=== PATIENT | female | born 1970 | race Caucasian/White ===

== ENCOUNTER → 2017-01-24 | Outpatient (CLI) | payer BC ==
[~2017-01-24] MED LIST: APRISO PO; CLTP PO; DFL50 NAE; MULT-506 PO
--- NOTE | 2017-01-24 11:26 | DIAGNOSTIC IMAGING REPORT ---
THYROID ULTRASONOGRAPHY CLINICAL HISTORY: Thyromegaly COMPARISON STUDY: No previous studies for comparison. FINDINGS: The right lobe of the thyroid measures 50 x 18 x 14 mm. There is a 2 mm hypoechoic nodule within the upper pole. The left lobe measures 51 x 15 x 11 mm. No left lobe nodules are visualized. Thyroid echotexture is unremarkable. The isthmus measures 3 mm. IMPRESSION: No suspicious thyroid masses identified. Electronically signed by: Ari Reno M.D. 01/24/2017 11:25 AM Dictated Date/Time: 01/24/2017 11:18 AM
[2017-01-24 13:37] LABS: BASO % 0.4 %; BASO ABS # 0.04 K/uL (0-0.2); COMPLETE YES; EOS % 1.1 %; HEMATOCRIT 46.1 % (37-47); IG% 0.3 %; LYMPH % 29.5 %; LYMPH ABS # 3.14 K/uL (1.2-3.4); MEAN CELL VOLUME 85.4 fL (80-100); MEAN CORPUSCULAR HGB CONC 32.8 g/dl (32-36); MEAN PLATELET VOLUME 10.1 fL (7.4-10.4); MONO % 5.8 %; NEUT % 62.9 %; PLATELET COUNT 305 K/uL (130-400); WHITE BLOOD COUNT 10.63 K/uL (4.8-10.8)
[2017-01-24 14:03] LABS: ALT/SGPT 22 U/L (12-78); AST/SGOT 12 U/L (15-37); BLOOD UREA NITROGEN 13 mg/dl (7-18); BUN/CREATININE RATIO 13.9 (10-20); CALCIUM 8.7 mg/dl (8.5-10.1); CARBON DIOXIDE 27 mmol/L (21-32); CHLORIDE 107 mmol/L (98-107); CREATININE 0.93 mg/dl (0.60-1.20); GLUCOSE 82 mg/dl (70-99); SODIUM 142 mmol/L (136-145)
[2017-01-24 14:15] LABS: ALB/GLOB RATIO 1.1 (0.9-2); ALKALINE PHOSPHATASE 95 U/L (45-117); CHOLESTEROL 164 mg/dl (0-200); CHOLESTEROL/HDL RATIO 2.7; HDL CHOLESTEROL 60 mg/dl; LDL CHOLESTEROL CALCULATED 84 mg/dl; THYROID STIMULATING HORMONE 0.826 uIu/ml (0.300-4.500); TRIGLYCERIDES 98 mg/dl (0-150); VERY LOW DENSITY LIPOPROT CALC 20 mg/dl
== END | disposition home or self-care (01) ==
LOC: C.ULTRBC 10:48
PROVIDERS: ATTEND Internal Medicine Geriatric Medicine
DX: Z00.00 Encounter for general adult medical examination without abnormal findings (principal); E04.9 Nontoxic goiter, unspecified; R79.9 Abnormal finding of blood chemistry, unspecified

== ENCOUNTER → 2017-04-18 | Outpatient (CLI) | payer BC ==
--- NOTE | 2017-04-18 16:30 | MAMMOGRAPHY REPORT ---
BILATERAL DIGITAL SCREENING MAMMOGRAM TOMOSYNTHESIS WITH CAD: 04/18/2017 TECHNIQUE: Breast tomosynthesis in addition to standard 2D mammography was performed. Current study was also evaluated with a Computer Aided Detection (CAD) system. COMPARISON: Comparison is made to exams dated: 04/12/2016 mammogram, 04/27/2015 ultrasound, 04/27/2015 mammogram, 04/07/2015 mammogram, 04/06/2014 mammogram, and 04/01/2014 mammogram - [facility]. BREAST COMPOSITION: The tissue of both breasts is heterogeneously dense, which may obscure small ma sses. FINDINGS: No suspicious masses, calcifications, or areas of architectural distortion are noted in e ither breast. There has been no significant interval change compared to prior exams. IMPRESSION: ACR BI-RADS CATEGORY 1: NEGATIVE There is no mammographic evidence of malignancy. A 1 year screening mammogram is recommended. The p atient will receive written notification of the results. Approximately 10% of breast cancers are not detected with mammography. A negative mammographic repor t should not delay biopsy if a clinically suggestive mass is present. Pastora Myers M.D. ah/:04/18/2017 15:04:59 Director Of Revenue Cycle Management: Alannah ACUÑA(Rebekah)(M), [facility] letter sent: Normal 1/2 BI-RADS Code: ACR BI-RADS Category 1: Negative
== END | disposition home or self-care (01) ==
LOC: C.MAMM 10:38
PROVIDERS: ATTEND Internal Medicine
DX: Z12.31 Encounter for screening mammogram for malignant neoplasm of breast (principal)

== ENCOUNTER → 2017-11-05 | Outpatient (CLI) | payer BC | END | disposition home or self-care (01) | LOC: C.PAPS 14:05 | PROVIDERS: ATTEND Obstetrics & Gynecology | DX: Z01.419 Encounter for gynecological examination (general) (routine) without abnormal findings (principal) ==

== ENCOUNTER → 2018-01-27 | Outpatient (CLI) | payer OTHER ==
--- NOTE | 2018-01-27 15:15 | MAMMOGRAPHY REPORT ---
UNILATERAL LEFT DIGITAL DIAGNOSTIC MAMMOGRAM TOMOSYNTHESIS WITH CAD AND TARGETED LEFT ULTRASOUND: 01/02 CLINICAL HISTORY: 47-year-old woman presents after she noticed soreness in her left lateral breast a few weeks ago. That prompted self breast exam and the patient felt a lump in the superior left breas t, which has since resolved. Family history of breast cancer = mother. TECHNIQUE: Left CC and MLO 2-D and tomosynthesis images; spot compression tomosynthesis left MLO view were obtained. Current study was also evaluated with a Computer Aided Detection (CAD) system. COMPARISON: Comparison is made to exams dated: 04/18/2017 mammogram, 04/12/2016 mammogram, 04/27/2015 u ltrasound, 04/27/2015 mammogram, 04/07/2015 mammogram, and 04/06/2014 mammogram - [facility]. BREAST COMPOSITION: The tissue of the left breast is heterogeneously dense, which may obscure small masses. FINDINGS: A triangular palpable marker was placed on the skin of the 12:00 to 1:00 left breast, denot ing the previous area of palpable lump pointed out by the patient. No obvious new mass, asymmetry, d istortion or calcifications are seen in the area of palpable concern. There are increasingly promine nt circumscribed mass versus masses in the 3:00 middle one third of the left breast for which further evaluation with ultrasound was performed. Mammographically, these masses measure 3.2 x 2.4 cm in co nglomerate. There is also an asymmetry in the posterior left breast along the posterior nipple line on the MLO view (MLO tomosynthesis slice 19/79), for which an additional spot compression tomosynthes is view was obtained. The additional spot compression tomosynthesis view of the left breast demonstrates effacement of the asymmetry seen on the tomosynthesis images along the posterior nipple line. There is no persistent a maggie of architectural distortion or suspicious mass. Further evaluation with ultrasound was performed of the left breast. Targeted ultrasound was performed in the left breast with particular attention to the superior rest, area of palpable concern in the 12:00 axis, and circumscribed masses in the 3:00 axis. In the 12:00 breast, 6 cm from the nipple in the area of decreasing lump pointed out by the patient, sonographical ly normal tissue is seen. There are abutting anechoic benign simple cysts in the 3:00 left breast, 2 cm from the nipple, measuring 3.9 x 1.4 x 2.4 cm in conglomerate, corresponding to the circumscribed mammographic masses. Another oval parallel circumscribed hypoechoic cystic appearing mass with evid ence of posterior acoustic enhancement is identified in the 1:00 left breast, 6 cm from the nipple, m easuring 8.5 x 5.2 x 9.8 mm. No other suspicious solid mass is seen throughout the superior left shannon ast on ultrasound. No sonographic correlate to the effacing asymmetry in the posterior breast along the posterior nipple line on the MLO view. IMPRESSION: ACR BI-RADS CATEGORY 2: BENIGN, TARGETED ULTRASOUND ACR BI-RADS CATEGORY 2: BENIGN 1. There is no suspicious mammographic or sonographic abnormality to explain the decreasing palpable lump in the 12:00 left breast. Therefore, clinical follow-up is recommended as biopsy of a clinical ly suspicious mass should not be precluded by negative imaging. 2. There are 2 large anechoic benign cysts measuring 3.9 x 2.4 cm in the 3:00 left breast, which may be contributing to the breast mastalgia reported by the patient. 3. An asymmetry in the posterior left breast along the posterior nipple line on the MLO view effaces with additional spot compression tomosynthesis imaging and no suspicious sonographic correlate was s een. This most likely represented normal overlapping tissue. Recommend continued clinical follow-up otherwise return to annual screening mammography schedule, due in March 2018. These results and recommendations were discussed with the patient at the time of the exam. Approximately 10% of breast cancers are not detected with mammography. A negative mammographic report should not delay biopsy if a clinically suggestive mass is present. Hali Grimm M.D. ay/:01/27/2018 10:46:18 Cloud Automation Tester: Alannah Johnson, [facility] letter sent: Normal 1/2 BI-RADS Code: ACR BI-RADS Category 2: Benign Ultrasound BI-RADS: ACR BI-RADS Category 2: Benign
== END | disposition home or self-care (01) ==
LOC: C.MAMM 09:20
PROVIDERS: ATTEND Obstetrics & Gynecology
DX: N63.20 Unspecified lump in the left breast, unspecified quadrant (principal); N64.4 Mastodynia; Z80.3 Family history of malignant neoplasm of breast

== ENCOUNTER 2022-01-01 18:19 | Inpatient (IN) ==
[2022-01-01] MEDS ORDERED: ONDANSETRON INJ 2 MG/ML 2 ML VIAL IV STA (18:58)
[2022-01-01] MEDS ORDERED: MoRPHine SULFATE 2 MG/ML CARP IV STA (18:58)
[2022-01-01] MEDS ORDERED: SODIUM CHLORIDE 0.9% 1000ML 1,000 ML IV ONE (18:58)
--- NOTE | 2022-01-01 19:04 | Emergency Department Note ---
History of Present Illness General Chief complaint: Abdominal Pain Stated complaint: RT ABDOM PAIN, REF FOR GALLBLADDER Time Seen by Provider: 01/01/22 18:38 Source: patient and family (Spouse who is at the bedside) Mode of arrival: ambulatory Limitations: no limitations History of Present Illness Maximum Pain Intensity: 9 This patient is a 51-year-old female who comes in with right upper quadrant abdominal pain. She had ultrasound done at [facility] which showed gallstones with suspicion for cholecystitis with surgical consultation recommended. She was sent here by her primary doctor. This all started Friday night she was seen here when she had chest and back pain a significant work-up was done which was unremarkable and she was sent home. She said she felt good until Friday when she ate some sausage and hamburger and the pain got worse now it was in the right upper quadrant not in her chest. She saw Dr. Brunson's office and Dalia Cristina today who ordered a gallbladder ultrasound. She had a low-grade temperature of 99 for the last 2 days she has had nausea she vomited yesterday and also on Friday but none today. She has had decreased p.o. intake she is been taking sips. She had normal bowel movements. No chest pain. Occasionally back pain still she has been Covid vaccinated x2 as well as boosted. No blood or melena stool. She is perimenopausal and currently has her menstrual period Home Medications Medication Instructions Recorded Confirmed Type calcium carbonate 600 mg-vitamin 1 tab PO DAILY tab 08/09/19 01/01/22 History D3 10 mcg (400 unit) chewable tablet (Calcium 600 with Vitamin D3) mesalamine 0.375 gram 1.5 gm PO QAM 08/09/19 01/01/22 History capsule,extended release 24 hr (Apriso) pediatric multivitamin 1 tab PO DAILY 08/09/19 01/01/22 History (Flintstones Multivitamin) escitalopram oxalate 20 mg tablet 20 mg PO DAILY #30 tab 10/17/21 01/01/22 Rx nystatin-triamcinolone 100,000 1 applic TOPICAL TID PRN 12/28/21 01/01/22 History unit/g-0.1 % topical cream Allergies Allergy/AdvReac Type Severity Reaction Status Date / Time sulfamethoxazole Allergy Severe Hives Verified 01/01/22 18:45 [From Bactrim] trimethoprim [From Bactrim] Allergy Severe Hives Verified 01/01/22 18:45 Penicillins Allergy Unknown Unknown Verified 01/01/22 18:45 Past Med/Surg History Medical History (Updated 01/01/22 @ 22:13 by Jean Shields MD) Hypertension, essential Migraine headache Ulcerative colitis Surgical History H/O colonoscopy History of oral surgery Family History Father Hx of CABG Mother Breast cancer Osteoporosis Grandmother Alzheimer disease Other Myocardial infarction Prostate cancer Denies family history of Ovarian cancer Diabetes Lung cancer Colorectal cancer Hypertension Stroke Social History Smoking Status: Never smoker Hx Alcohol Use: Yes Alcohol type: beer and wine Hx Substance Use: No Preferred Language: Kinyarwanda marital status: Current Living Situation: Spouse current occupational status: employed Feels Safe at Home: Yes Dental Care, Regularly: Yes Physical Activity Frequency: 3-4 Times per Week Seatbelt Use: always Sunscreen Use: Yes Review of Systems A total of 10 systems reviewed and were otherwise negative Physical Exam Vital Signs Vital Signs - 24 hr 01/01/22 18:20 Temperature 36.7 C Temperature Source Temporal Artery Scan Pulse Rate 117 H Pulse Rhythm Regular Respiratory Rate 20 Respiratory Effort / Characteristics Non-Labored Spontaneous Respiratory Depth Normal Respiratory Pattern Regular Blood Pressure 188/97 H Blood Pressure Mean 127 Pulse Oximetry 97 Oxygen Delivery Method Room Air Sepsis Recent Fever Within 48 Hours No Sepsis New/Unexplained Change in Mental Status No Sepsis Action Taken by Nursing No Action Required General: Well developed well nourished middle-aged female who is complaint of pain but in no acute distress, breathing comfortably on room air. Normal speech HEENT: Normal cephalic atraumatic. Pupils are equal round and reactive to light . Extraocular movements are intact. Oropharynx is pink with moist mucous membranes. No swelling of the mouth lips or tongue. Neck: Supple with a midline trachea. No meningeal signs or stiffness, no JVD or bruits. No Stridor. Chest: Clear to auscultation bilaterally. No wheezes or rhonchi. No increased work of breathing. Heart: Regular rate and rhythm without murmurs or gallops. Abdomen: Soft, significantly tender with positive Nunez sign in the right upper, nondistended without rebound guarding or rigidity. Extremities: No cyanosis clubbing or edema. No calf tenderness or assymetry Spine/Back. Non tender to palpation. No CVA tenderness Skin: Good turgor without rashes. Neurologic exam: Cranial nerves two through 12 are intact. Motor and sensation are intact and symmetrical throughout. Course Administered Medications Hydralazine HCl (Hydralazine Hcl 20 Mg/Ml Vial) 5 mg IV Q6H PRN PRN Reason: SBP >180 Stop: 01/31/22 21:44 Last Admin: 01/01/22 21:56 Dose: 5 mg Documented by: [id number] Lactated Ringer's (Lr) 1,000 mls @ 75 mls/hr IV .[id number] Stop: 01/31/22 20:14 Last Admin: 01/01/22 22:00 Dose: 75 mls/hr Documented by: [id number] Discontinued Medications Sodium Chloride (Nss 1000ml) 1,000 mls @ 999 mls/hr IV .[id number] ONE Stop: 01/01/22 19:58 Last Infusion: 01/01/22 21:00 Dose: 0 mls/hr Documented by: [id number] Admin: 01/01/22 19:13 Dose: 999 mls/hr Documented by: [id number] Cefepime HCl 2,000 mg/ Syringe 20 mls @ 5 mls/min IV NOW STA; Protocol Stop: 01/01/22 19:17 Last Admin: 01/01/22 19:56 Dose: 5 mls/min Documented by: [id number] Morphine Sulfate (Morphine Sulfate 2 Mg/Ml Carp) 2 mg IV NOW STA Stop: 01/01/22 18:59 Last Admin: 01/01/22 19:12 Dose: 2 mg Documented by: [id number] Ondansetron HCl (Ondansetron Inj 2 Mg/Ml 2 Ml Vial) 4 mg IV NOW STA Stop: 01/01/22 18:59 Last Admin: 01/01/22 19:12 Dose: 4 mg Documented by: [id number] Medical Decision Making Differential Diagnosis Gallbladder disease, gallstones, cholelithiasis, Covid, electrolyte or metabolic abnormality, pancreatitis, cardiac disease, Medical Records Attestation: I reviewed the patient's medical records. Home Medications Current Medication List: was personally reviewed by me Laboratory Data Attestation: I reviewed the patient's lab results. Result diagrams: 01/01/22 19:18 01/01/22 19:18 Lab Results 01/01/22 01/01/22 01/01/22 Range/Units 19:18 19:18 19:58 WBC 20.84 H (4.8-10.8) K/uL RBC 5.19 (4.2-5.4) M/uL Hgb 15.1 (12.0-16.0) g/dL Hct 45.0 (37-47) % MCV 86.7 (80-100) fL MCH 29.1 (25-34) pg MCHC 33.6 (32-36) g/dL RDW Std Deviation 42.5 (36.4-46.3) fL RDW Coeff of Abbie 13.2 (11.5-14.5) % Plt Count 298 (130-400) K/uL MPV 10.3 (7.4-10.4) fL Immature Gran % (Auto) 0.1 % Neut % (Auto) 85.9 % Lymph % (Auto) 5.4 % [place] % (Auto) 8.4 % Eos % (Auto) 0.1 % Baso % (Auto) 0.1 % Neut # (Auto) 17.88 H (1.4-6.5) K/uL Lymph # (Auto) 1.13 L (1.2-3.4) K/uL [place] # (Auto) 1.76 H (0.11-0.59) K/uL Eos # (Auto) 0.02 (0-0.5) K/uL Baso # (Auto) 0.02 (0-0.2) K/uL Immature Gran # (Auto) 0.03 H (0.00-0.02) K/uL Sodium 133 L (136-145) mmol/L Potassium 3.7 (3.5-5.1) mmol/L Chloride 99 (98-107) mmol/L Carbon Dioxide 22 (21-32) mmol/L Anion Gap 12 H (3-11) BUN 8 (6-23) mg/dl Creatinine 0.72 (0.6-1.2) mg/dl Est Cr Clr Drug Dosing 87.5 ml/min Est GFR ( Amer) 112.4 ml/min Est GFR (Non-Af Amer) 97.0 ml/min BUN/Creatinine Ratio 11.1 (10-20) Glucose 117 H (70-99(Fasting)) mg/dl Calcium 9.2 (8.5-10.1) mg/dl Total Bilirubin 1.1 H (0.2-1.0) mg/dl AST 13 (13-39) U/L ALT 14 (7-52) U/L Alkaline Phosphatase 100 (34-104) U/L Total Protein 7.6 (6.0-8.3) gm/dl Albumin 4.1 (3.4-5.0) gm/dl Globulin 3.5 (2.5-4.0) gm/dl Albumin/Globulin Ratio 1.2 (0.9-2) Lipase 6 L (11-82) U/L SARS-CoV-2, RNA, NAAT NEGATIVE (NEGATIVE) Imaging Data My Impression: 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 She has an ultrasound which is suggestive for cholecystitis. She was kept n.p.o. IV access was to have she hydrated with IV normal saline. she was given morphine 2 mg IV and Zofran 4 mg IV. I did consult surgery to see her in the emergency department. I did talk to Marvin Harris from surgery he is going to come see the patient in the emergency department. He did agree with giving the patient IV cefepime which I ordered. Her white count is elevated 20,000, she has no significant electrolyte or metabolic abnormalities. Surgery is going to admit her for IV antibiotics and surgery. Impression & Plan Acute cholecystitis, Abdominal pain, Lab test negative for COVID-19 virus, Not currently Discharge Plan Visit Data Chief Complaint: Abdominal Pain Stated Complaint: RT ABDOM PAIN, REF FOR GALLBLADDER ED Provider: Jean Shields Discharge Problem: Acute cholecystitis, Abdominal pain, Lab test negative for COVID-19 virus, Not currently Patient Disposition: Admitted As Inpatient Discharge Instructions Interventions: ED Discharge Assessment Last Done: 01/01/22 21:15 Discharge Problem: Abdominal pain Qualifiers: Abdominal location: right upper quadrant Qualified Code(s): R10.11 - Right upper quadrant pain
[2022-01-01] MEDS ORDERED: CEFEPIME 2,000 MG in SYRINGE 0 ML IV STA (19:14)
[2022-01-01 19:56] LABS: Basophils # (auto) 0.02 K/uL (0-0.2); Basophils % (auto) 0.1 %; Eosinophils # (auto) 0.02 K/uL (0-0.5); Eosinophils % (auto) 0.1 %; Hemoglobin 15.1 g/dL (12.0-16.0); Immature Granulocytes # (auto) 0.03 K/uL (0.00-0.02); Immature Granulocytes % (auto) 0.1 %; Lymphocytes # (auto) 1.13 K/uL (1.2-3.4); Lymphocytes % (auto) 5.4 %; Mean Corpuscular Hemoglobin 29.1 pg (25-34); Mean Corpuscular Hgb Conc 33.6 g/dL (32-36); Mean Corpuscular Volume 86.7 fL (80-100); Mean Platelet Volume 10.3 fL (7.4-10.4); Monocytes # (auto) 1.76 K/uL (0.11-0.59); Monocytes % (auto) 8.4 %; Neutrophils # (auto) 17.88 K/uL (1.4-6.5); Neutrophils % (auto) 85.9 %; Platelet Count 298 K/uL (130-400); RDW Coefficient of Variation 13.2 % (11.5-14.5); RDW Standard Deviation 42.5 fL (36.4-46.3); Red Blood Count 5.19 M/uL (4.2-5.4); White Blood Count 20.84 K/uL (4.8-10.8)
--- NOTE | 2022-01-01 20:00 | History & Physical Report ---
Date of Service January 01, 2022 Assessment & Plan (1) Acute cholecystitis: Plan: Due to the patient's clinical presentation and imaging she will be admitted to the hospital proceeding as follows: Analgesics will be provided Antiemetics will be provided Antibiotics will be administered. The treating emergency room physician has initiated cefepime (the patient does report a penicillin allergy). We will continue antibiotics. We will provide gentle hydration with IV fluids We will have the patient sips of clear liquids for the present time but make her n.p.o. after midnight We will await Covid testing We have tentatively scheduled the patient for laparoscopic, possible open cholecystectomy by Dr. Quentin Estrada tomorrow. He will further discuss the surgical procedure with the patient at the time of his visit with her tomorrow. It should be noted that we are presently waiting on the patient's chemistry profile and LFTs. If there are any abnormalities on her LFTs suggestive of choledocholithiasis appropriate measures such as a MRCP or GI consultation will be considered. Additional recommendations be forthcoming based on her clinical course as unfolds as well as findings at time of surgery. We will use SCDs for DVT prevention, no chemical means due to planned surgery Patient be a level 1 full code History of Present Illness Chief Complaint: Abdominal pain Primary Care Provider: Brayan Kowalski MD This is a 51-year-old female who presented to [facility] on 12/20/2021 secondary to chest tightness as well as right upper quadrant abdominal pain. Patient said prior to presenting to the emergency department she had a fatty meal. She developed some nausea vomiting and a low-grade temperature of approximate 99. Because of her chest tightness she presented to the emergency department. In the emergency department that day she had labs and imaging which independent reviewed. CT scan of the chest showed no evidence of pneumonia or PE. An EKG showed normal sinus rhythm without change indicative of ischemia and cardiac enzymes are negative. There is no elevation of her LFTs or lipase. Patient was however noted to have an elevated white blood cell count of 14.6 at that time. She was felt stable for discharge home was instructed to follow-up with her primary care team. Patient is was seen by her primary care team today and the patient was complaining of some right upper quadrant abdominal pain so a gallbladder ultrasound was ordered. This study showed a distended gallbladder with gallstones and sludge. There is some nonmobile gallstone seen in the region of the gallbladder neck. There is mild thickening of the gallbladder wall up to approximately 4 mm. There is no pericholecystic fluid noted. Because the results of the ultrasound she was advised by her primary care team to present to the emergency department where I was asked to see her. I did question patient on her abdominal pain and she said thinking back over the past several months she would develop some postprandial pain in the right upper quadrant but it was not as severe as what she is presently experiencing. She does note with her current pain it does radiate to her upper back/right shoulder area. She notes pain is clearly worse after eating and is improved with morphine that has been administered in the emergency department Patient notes that she had some sips of water today but has not had any thing else in the form of oral intake. She notes she has never had any prior abdominal surgeries. She does note that she has a history of ulcerative colitis. She said this was diagnosed in 2006 when she was having mucousy bowel movements. She said the diagnosis was made by sigmoidoscopy and she is subsequent been placed on mesalamine. She says she is compliant with her medicines and has not had an ulcerative colitis flare since her initial diagnosis in 2006. She reports her most recent colonoscopy was within the past year and there is no significant pathology to the best of her knowledge. Since arrival to the emergency department she has been noted to be hem odynamically stable and afebrile. She did have repeat labs were CBC showed her white blood cell count was 20.8. Her hemoglobin, hematocrit, and platelet count were within normal range. Chemistry profile and LFTs along with a test are pending. A Covid test has also been ordered and is pending. At the time of my interview patient had received some morphine and her pain was well controlled and she was no distress. Allergies Allergy/AdvReac Type Severity Reaction Status Date / Time sulfamethoxazole Allergy Severe Hives Verified 01/01/22 18:45 [From Bactrim] trimethoprim [From Bactrim] Allergy Severe Hives Verified 01/01/22 18:45 Penicillins Allergy Unknown Unknown Verified 01/01/22 18:45 Home Medications Medication Instructions Recorded Confirmed Type calcium carbonate 600 mg-vitamin 1 tab PO DAILY tab 08/09/19 01/01/22 History D3 10 mcg (400 unit) chewable tablet (Calcium 600 with Vitamin D3) mesalamine 0.375 gram 1.5 gm PO QAM 08/09/19 01/01/22 History capsule,extended release 24 hr (Apriso) pediatric multivitamin 1 tab PO DAILY 08/09/19 01/01/22 History (Flintstones Multivitamin) escitalopram oxalate 20 mg tablet 20 mg PO DAILY #30 tab 10/17/21 01/01/22 Rx nystatin-triamcinolone 100,000 1 applic TOPICAL TID PRN 12/28/21 01/01/22 History unit/g-0.1 % topical cream oxycodone 5 mg tablet 5 - 10 mg PO .[id number] PRN #15 tab 01/02/22 Rx Past Med/Surg History Medical History Hypertension, essential Migraine headache Ulcerative colitis Surgical History H/O colonoscopy History of oral surgery Family History Father Hx of CABG Mother Breast cancer Osteoporosis Grandmother Alzheimer disease Other Myocardial infarction Prostate cancer Denies family history of Ovarian cancer Diabetes Lung cancer Colorectal cancer Hypertension Stroke Social History Smoking Status: Never smoker Second Hand Exposure: No; Do You Dip or Chew Tobacco: No; Tobacco Cessation Education Requested by Patient: No Hx Alcohol Use: Yes Alcohol type: beer and wine Hx Substance Use: No Preferred Language: Danish Communication Ability: Effective Multicultural Services Librarian Required: No Beliefs That Will Affect Care: None marital status: Current Living Situation: Spouse and Family current occupational status: employed Other Information That Helps Us Care for You: No Feels Safe at Home: Yes Safety Concerns: Feels Safe At This Time Dental Care, Regularly: Yes Physical Activity Frequency: 3-4 Times per Week Seatbelt Use: always Sunscreen Use: Yes Assistive Devices: None Review of Systems Constitutional: + fever (Low-grade); no chills Eyes: no diplopia Ear, Nose, Mouth, Throat: no ear pain, no hearing loss and no sore throat Respiratory: no cough and no dyspnea Cardiovascular: as per Subjective / HPI Gastrointestinal: as per Subjective / HPI, + abdominal pain, + nausea and + vomiting Genitourinary: no dysuria Musculoskeletal: + back pain (Radiating from her right upper quadrant) Integumentary: no rash Neurologic: no localized weakness Physical Exam Constitutional: WD/WN, vitals as above Eyes: + anicteric sclerae ENMT: Ears: no hearing impairment and no external ear abnormality Mouth: no oropharynx abnormality Neck: trachea midline Respiratory: normal respiratory effort, lungs clear to auscultation Cardiovascular: Rate/Rhythm: regular rate and regular rhythm Gastrointestinal (Abdomen): Patient's abdomen is soft and nondistended. Bowel sounds are present. There is no rebound tenderness or guarding. The patient did have significant pain with palpation greatest in the right upper quadrant with positive Nunez sign. To a lesser extent she did have some pain with palpation in the epigastric area. Musculoskeletal: No calf tenderness Skin: no rashes Neurologic: moves all extremities Psychiatric: A+Ox3, euthymic affect Results & Data Results & Data ([facility]) Vital Signs (Past 12 Hours) Vital Signs Temp Pulse Resp BP Pulse Ox 01/01/22 18:20 36.7 C 117 H 20 188/97 H 97 Supervising Physician Co-Signing Physician Notes I personally saw and evaluated the patient with Héctor Harris PA-C and agree with the assessment and plan. 51-year-old female with acute cholecystitis Admit to surgery Start IV antibiotics Keep n.p.o. Pain control as needed To OR tomorrow for laparoscopic cholecystectomy, possible open, possible intraoperative cholangiogram Consent obtained, risks discussed including bleeding, infection, bile leak, ductal injury PG Care Time/CCT Total # of Minutes Spent Total Time Spent with Patient: Total time spent is greater than 50% in coordination of care (as documented) at patient's floor/unit and/or counseling patient: Coding Level of Care Code 01553 Initial Inpt Care Lvl 3 Diagnoses Acute cholecystitis K81.0
[2022-01-01] MEDS ORDERED: ACETAMINOPHEN 1,000 MG/100 ML VIAL IV PRN (20:09)
[2022-01-01] MEDS ORDERED: MoRPHine SULFATE 4 MG/ML 1 ML CARP\\VIAL IV PRN (20:09)
[2022-01-01 20:26] LABS: Albumin Globulin Ratio 1.2 (0.9-2); Albumin Level 4.1 gm/dl (3.4-5.0); BUN Creatinine Ratio 11.1 (10-20); Bilirubin,Total 1.1 mg/dl (0.2-1.0); Calcium 9.2 mg/dl (8.5-10.1); Creatinine Clr Calc Pharmacy 87.5 ml/min; Est GFR (African American) 112.4 ml/min; Globulin 3.5 gm/dl (2.5-4.0); Potassium 3.7 mmol/L (3.5-5.1); Total Protein 7.6 gm/dl (6.0-8.3)
[2022-01-01 20:55] LABS: Appearance Urine Clear (Clear); Bacteria Urine Automated Negative (Negative); Bilirubin Urine Negative (Negative); Blood Urine 3+ (Negative); Color Urine Yellow; Epithelial Cell Urine Auto 20-30 /lpf (0-5); Glucose Urine UA Negative (Negative); Ketones Urine 3+ (Negative); Leukocyte Esterase Urine Negative (Negative); Nitrite Urine Negative (Negative); Protein Urine 1+ (Negative); Specific Gravity Urine 1.013 (1.000-1.030); Urobilinogen Urine Negative (Negative)
[2022-01-01] MEDS ORDERED: ONDANSETRON INJ 2 MG/ML 2 ML VIAL IV PRN (21:31)
[2022-01-01] MEDS ORDERED: CEFEPIME 2,000 MG in SYRINGE 0 ML IV SCH (21:31)
[2022-01-01] MEDS ORDERED: hydrALAZINE HCL 20 MG/ML VIAL IV PRN (21:45)
--- NOTE | 2022-01-01 21:50 | Communication Note ---
Date of Service: January 01, 2022 Notified by RN the patient being elevated BP readings. Upon arrival to the floor BP readings of 201/122 and 192/110 noted. Patient's pain control was r eported as a 3 so doubt this is contributing to the patient's elevated BP. Her records were reviewed and she has been followed by her PCP for this problem, however most recently lifestyle changes including weight loss have been recommended to the patient and she is currently not taking any medication. To the elevated BP readings will order as needed IV hydralazine to see if this helps BP readings. If she continues to have persistently elevated readings we will request a medical consult.
[2022-01-01] MEDS: LACTATED RINGER'S 1,000 ML IV SCH (22:00)
[2022-01-02] MEDS ORDERED: CEFEPIME 2,000 MG in SYRINGE 0 ML IV SCH (06:00)
--- NOTE | 2022-01-02 06:13 | Communication Note ---
Date of Service: January 02, 2022 Discussed with RN. As noted previously patient had markedly elevated blood pressure. She received 1 dose of IV hydralazine, 5 mg and her blood pressure improved to 159/89. We will continue to monitor.
--- NOTE | 2022-01-02 07:42 | Anesthesiology Consultation ---
Date of Service January 02, 2022 Assessment & Plan (1) Encounter for pre-operative examination: Chart Review Chart Review: entry manager initiated History Surgery Operation Date: 01/02/22 13:25 Proposed Procedures p Laparoscopic Cholecystectomy Possible Ellie - Quentin Estrada, Height/Weight Height: 5 ft 1.5 in Weight: 78.8 kg Allergies Allergy/AdvReac Type Severity Reaction Status Date / Time sulfamethoxazole Allergy Severe Hives Verified 01/01/22 18:45 [From Bactrim] trimethoprim [From Bactrim] Allergy Severe Hives Verified 01/01/22 18:45 Penicillins Allergy Unknown Unknown Verified 01/01/22 18:45 Medications Home Medications Medication Instructions Recorded Confirmed Last Taken calcium carbonate 600 mg-vitamin 1 tab PO DAILY tab 08/09/19 01/01/22 Unknown D3 10 mcg (400 unit) chewable tablet (Calcium 600 with Vitamin D3) mesalamine 0.375 gram 1.5 gm PO QAM 08/09/19 01/01/22 Unknown capsule,extended release 24 hr (Apriso) pediatric multivitamin 1 tab PO DAILY 08/09/19 01/01/22 Unknown (Flintstones Multivitamin) escitalopram oxalate 20 mg tablet 20 mg PO DAILY #30 tab 10/17/21 01/01/22 Unknown nystatin-triamcinolone 100,000 1 applic TOPICAL TID PRN 12/28/21 01/01/22 Unknown unit/g-0.1 % topical cream Active Medications Generic Name Dose Route Start Last Admin Trade Name Freq PRN Reason Stop Dose Admin Hydralazine HCl 5 mg 01/01/22 21:45 01/01/22 21:56 Hydralazine Hcl 20 Mg/Ml Vial IV 01/31/22 21:44 5 mg Q6H PRN Administration SBP >180 Lactated Ringer's 1,000 mls @ 75 mls/hr 01/01/22 20:15 01/01/22 22:00 Lr IV 01/31/22 20:14 75 mls/hr .[id number] MATHEW Administration Cefepime HCl 2,000 mg/ Syringe 20 mls @ 5 mls/min 01/02/22 06:00 01/02/22 05:58 IV 01/12/22 05:59 5 mls/min Q12H AMTHEW Administration Protocol Miscellaneous 1 ea 01/02/22 00:00 02/02/22 00:00 Mesalamine 0.375 Gram Capsules~Order Awaiting Action N/A 02/01/22 00:00 Not Given QS MATHEW NPO Date Last Intake of Fluids: 01/01/22 Time Last Intake of Fluids: 23:55 Past Medical History Medical History (Updated 01/02/22 @ 07:41 by Jan Pratt DO) Hypertension, essential Migraine headache Ulcerative colitis Past Family History Family History Father Hx of CABG Mother Breast cancer Osteoporosis Grandmother Alzheimer disease Other Myocardial infarction Prostate cancer Denies family history of Ovarian cancer Diabetes Lung cancer Colorectal cancer Hypertension Stroke Past Surgical History Surgical History H/O colonoscopy History of oral surgery Social History Smoking Status: Never smoker Do You Dip or Chew Tobacco: No Hx Alcohol Use: Yes Alcohol type: beer and wine alcohol intake frequency: a few times a week Alcohol Intake Frequency Comment: 2-3 drinks 3 times a week. Hx Substance Use: No Physical Exam Vital Signs Last Vital Signs Temp 99.5 F 01/02/22 04:28 Pulse 114 H 01/02/22 04:28 Resp 16 01/02/22 04:28 BP 159/89 H 01/02/22 04:28 Pulse Ox 93 01/02/22 04:28 Testing Laboratory Results 01/01/22 19:18 01/01/22 19:18 Urine Color Yellow 01/01/22 20:25 Urine Appearance Clear (Clear) 01/01/22 20:25 Urine pH 6.0 (4.5-7.5) 01/01/22 20:25 Ur Specific [place] 1.013 (1.000-1.030) 01/01/22 20:25 Urine Protein 1+ (Negative) H 01/01/22 20:25 Urine Glucose (UA) Negative (Negative) 01/01/22 20:25 Urine Ketones 3+ (Negative) H 01/01/22 20:25 Urine Nitrite Negative (Negative) 01/01/22 20:25 Ur Leukocyte Esterase Negative (Negative) 01/01/22 20:25 Urine WBC (Auto) 1-5 /hpf (0-5) 01/01/22 20:25 Urine RBC (Auto) 10-30 /hpf (0-4) H 01/01/22 20:25 U Hyaline Cast (Auto) 1-5 /lpf (0-5) 01/01/22 20:25 U Epithel Cells (Auto) 20-30 /lpf (0-5) H 01/01/22 20:25 Urine Bacteria (Auto) Negative (Negative) 01/01/22 20:25 01/01/22 20:25 POC Ur Test NEG Laboratory Tests 01/01/22 19:58 SARS-CoV-2, RNA, NAAT NEGATIVE Electrocardiogram Date: 12/28/21 Findings: + NSR @ (74 bpm) Chest X-Ray Date: 12/28/21 Findings: + NAD
[2022-01-02] MEDS: ESCITALOPRAM OXALATE 20 MG TAB PO SCH (08:03)
[2022-01-02] MEDS: LACTATED RINGER'S 1,000 ML IV SCH ×2 (10:14→23:39)
[2022-01-02] MEDS ORDERED: fentaNYL citrate 100 MCG/2 ML VIAL ONE (13:01)
[2022-01-02] MEDS ORDERED: MIDAZOLAM HCL 1 MG/ML 2ML VIAL ONE (13:01)
[2022-01-02] MEDS ORDERED: ACETAMINOPHEN 500 MG TAB PO ONE (13:22)
[2022-01-02] MEDS ORDERED: ACETAMINOPHEN 500 MG TAB ONE (13:23)
[2022-01-02] MEDS ORDERED: fentaNYL citrate 100 MCG/2 ML VIAL IV PRN (13:32)
[2022-01-02] MEDS ORDERED: PROMETHAZINE HCL 12.5 MG in SODIUM CHLORIDE 0.9% 50 ML IV PRN (13:32)
[2022-01-02] MEDS ORDERED: ATROPINE SULFATE 0.1 MG/ML 10ML SYR IV PRN (13:32)
[2022-01-02] MEDS ORDERED: ONDANSETRON INJ 2 MG/ML 2 ML VIAL IV PRN (13:32)
[2022-01-02] MEDS ORDERED: KETOROLAC 30 MG/ML VIAL IV PRN (13:32)
[2022-01-02] MEDS ORDERED: LABETALOL HCL IV 5 MG/ML 20ML IV PRN (13:32)
[2022-01-02] MEDS ORDERED: EPINEPHrine INJ 1 MG/ML AMP ONE (13:35)
[2022-01-02] MEDS ORDERED: BUPIVACAINE 0.25% 30 ML VIAL ONE (13:35)
[2022-01-02] MEDS: CEFEPIME 2,000 MG in SYRINGE 0 ML IV SCH ×2 (13:38→21:03)
[2022-01-02] MEDS ORDERED: NEOSTIGMINE METHYLSULFATE 1 MG/ML 10ML VIAL ONE (14:12)
[2022-01-02] MEDS ORDERED: ONDANSETRON INJ 2 MG/ML 2 ML VIAL ONE (14:12)
[2022-01-02] MEDS ORDERED: ROCURONIUM BROMIDE 10 MG/ML 5 ML VIAL IV ONE ×2 (14:12→14:52)
[2022-01-02] MEDS ORDERED: PROPOFOL IV EMULSION 10 MG/ML 20 ML VIAL IV ONE (14:12)
[2022-01-02] MEDS ORDERED: LIDOCAINE 2% 2 ML VIAL/AMP(20MG/ML) INFIL ONE (14:12)
[2022-01-02] MEDS ORDERED: LARYING-O-JET KIT (LTA) ONE (14:12)
[2022-01-02] MEDS ORDERED: KETOROLAC 30 MG/ML VIAL ONE (14:12)
[2022-01-02] MEDS ORDERED: DEXAMETHASONE SOD INJ 4 MG/ML VIAL ONE (14:12)
[2022-01-02] MEDS ORDERED: GLYCOPYRROLATE 0.2 MG/ML VIAL ONE (14:12)
[2022-01-02] MEDS ORDERED: FLOSEAL HEMOSTATIC MATRIX 10ML TOP ONE (15:01)
--- NOTE | 2022-01-02 15:37 | Post Operative Brief Note ---
PG Immediate Post Op with CF Date of Surgery January 02, 2022 Pre & Post Diagnosis Operation Date: 01/02/22 13:25 Pre-Op Diagnosis: Acute CHOLECYSTITIS Post-Op Diagnosis: Acute Gangrenous CHOLECYSTITIS I identified the patient and participated in the time-out.: Yes Procedure Operation Date: 01/02/22 13:25 Actual Procedures p Laparoscopic Cholecystectomy - Quentin Estrada DO Surgeon Quentin Estrada DO Investment Broker Neyda Álvarez PA-C Estimated Blood Loss 75 Findings Consistent with Post-Op Diagnosis Specimens Specimen Description: A. gallbladder and contents Anesthesia Type General Complications none Disposition Disposition: Recovery Room
--- NOTE | 2022-01-02 15:44 | Operative Report ---
PG Post Operative Report Pre & Post Diagnosis Operation Date: 01/02/22 13:25 Pre-Op Diagnosis: Acute CHOLECYSTITIS Post-Op Diagnosis: Acute Gangrenous CHOLECYSTITIS I identified the patient and participated in the time-out.: Yes Procedure Operation Date: 01/02/22 13:25 Actual Procedures p Laparoscopic Cholecystectomy - Quentin Estrada DO Surgeon Quentin Estrada DO Search Director Neyda Álvarez PA-C Estimated Blood Loss 75 Findings Consistent with Post-Op Diagnosis Fluids see anesthesia record Specimens Gallbladder to pathology Drains None Anesthesia Type General Complications none Disposition Disposition: Recovery Room Indications 51 yo female with acute cholecystitis Description of Procedure The patient was brought to the operating room and placed in the supine position with both arms extended. At this time she underwent general endotracheal anesthesia without any problems. She was given appropriate pre-operative antibiotics. Her abdomen prepped and draped in the usual sterile fashion. A timeout was called, the procedure was verified as Laparoscopic cholecystectomy, possible open, possible intra-operative cholangiogram. Surgical, nursing and anesthesia teams agreed and the procedure was begun. After injection of 0.25% Marcaine with epinephrine, a supraumbilical vertical incision was made and carried down to the fascia using S-retractors. The abdominal wall was then elevated with towel clamps and abdomen entered using the Veress needle confirming position using the saline drop test. Pneumoperitoneum was established. 5mm trocar was placed. Laparoscope was introduced. No injury from entry into the abdomen was visualized after inspection of the abdomen. Three further ports were placed under direct visualization. One 11mm in the subxiphoid region and two 5mm in the RUQ. At this time the abdomen was inspected and the gallbladder identified. There was a thick omental rind that was taken down off the gallbladder bluntly. The gallbladder itself was edematous thickened and inflamed. It was also gangrenous. The gallbladder was decompressed using a needle and suction. The gallbladder fundus was grasped and retracted cephalad. The gallbladder infundibulum was then grasped and retracted laterally. The cystic duct and cystic artery were then identified and skeletonized. The critical view of safety was obtained. They were both then clipped twice proximally and once distally and then divided using scissors. The gallbladder was then taken off of the liver bed using electrocautery and placed in an endocatch bag and removed from the subxiphoid port. The liver bed was then inspected and no bile leak or bleeding was evident. The subxiphoid port was then closed using 0-Vicryl using the suture passer. The trocars were then removed under direct visualization and no bleeding was present. Abdomen was desufflated. The skin was then closed using 4-0 Monocryl in a subcuticular fashion. Sterile dressings were applied. Needle and sponge counts were correct x 2. At this time the patient was awoken from anesthesia and extubated having remained stable throughout the entire case. The patient was then transported to PACU in stable condition. The physician laboratory chemical assistant was present and scrubbed throughout the entire case. She was essential in positioning, prepping and draping the patient, driving the laparoscope, retraction and exposure, closure of the incisions and placement the dressings. I attest to the content of the Intraoperative Record and any orders documented therein. Any exceptions are noted below.
--- NOTE | 2022-01-02 16:33 | Anesthesiology Progress Note ---
Date of Service January 02, 2022 Anesthesia Post Procedure Vital Signs Vital Signs: Temp Pulse Pulse Pulse Resp BP BP 01/02/22 16:20 93 H 12 133/86 01/02/22 16:10 94 H 20 138/88 01/02/22 16:00 99 H 21 129/88 01/02/22 15:50 101 H 21 138/82 01/02/22 15:40 36.9 C 100 H 18 93/59 L 01/02/22 12:58 38.1 C H 128 H 18 169/96 H 01/02/22 08:24 37.3 C 113 H 16 141/75 H 01/02/22 04:28 37.5 C 114 H 16 159/89 H 01/01/22 22:42 164/82 H 01/01/22 21:15 37.4 C 108 H 18 201/122 H 01/01/22 20:31 108 H 16 177/104 H 01/01/22 18:20 36.7 C 117 H 20 188/97 H Pulse Ox 01/02/22 16:20 95 01/02/22 16:10 96 01/02/22 16:00 96 01/02/22 15:50 97 01/02/22 15:40 98 01/02/22 12:58 01/02/22 08:24 93 01/02/22 04:28 93 01/01/22 22:42 01/01/22 21:15 94 01/01/22 20:31 98 01/01/22 18:20 97 Pain Intensity Right Abdomen: Pain Intensity: 5 Abdomen: Pain Intensity: 2 Transfer of Care Handoff Completed per policy Notes Mental Status: alert / awake / arousable and participated in evaluation Patient Amnestic to Procedure: Yes Nausea / Vomiting: adequately controlled Pain: adequately controlled Airway Patency, RR, SpO2: stable & adequate BP & HR: stable & adequate Hydration State: stable & adequate Anesthetic Complications: no major complications apparent and Pt Satisfied with anesthetic care
[2022-01-02] MEDS ORDERED: oxyCODONE HCL IR 5 MG TAB (IMMEDIATE RELEASE) PO PRN (17:04)
[2022-01-02] MEDS ORDERED: MoRPHine SULFATE 2 MG/ML CARP IV PRN (17:04)
[2022-01-02] MEDS: MoRPHine SULFATE 4 MG/ML 1 ML CARP\\VIAL IV PRN ×2 (18:09→21:06)
[2022-01-03] MEDS: CEFEPIME 2,000 MG in SYRINGE 0 ML IV SCH ×2 (05:27→14:24)
[2022-01-03] MEDS: LACTATED RINGER'S 1,000 ML IV SCH (05:27)
[2022-01-03] MEDS: MoRPHine SULFATE 4 MG/ML 1 ML CARP\\VIAL IV PRN (05:48)
[2022-01-03 06:43] LABS: Hemoglobin 13.2 g/dL (12.0-16.0); Immature Granulocytes # (auto) 0.03 K/uL (0.00-0.02); Immature Granulocytes % (auto) 0.2 %; Lymphocytes # (auto) 0.93 K/uL (1.2-3.4); Lymphocytes % (auto) 6.3 %; Mean Corpuscular Hemoglobin 28.6 pg (25-34); Mean Corpuscular Hgb Conc 32.2 g/dL (32-36); Mean Corpuscular Volume 88.7 fL (80-100); Mean Platelet Volume 9.9 fL (7.4-10.4); Monocytes # (auto) 1.17 K/uL (0.11-0.59); Monocytes % (auto) 7.9 %; Neutrophils # (auto) 12.74 K/uL (1.4-6.5); Neutrophils % (auto) 85.6 %; Platelet Count 338 K/uL (130-400); RDW Coefficient of Variation 13.9 % (11.5-14.5); RDW Standard Deviation 45.5 fL (36.4-46.3); Red Blood Count 4.62 M/uL (4.2-5.4); White Blood Count 14.87 K/uL (4.8-10.8)
[2022-01-03 07:02] LABS: BUN Creatinine Ratio 18.3 (10-20); Calcium 8.6 mg/dl (8.5-10.1); Creatinine Clr Calc Pharmacy 90.1 ml/min; Est GFR (African American) 114.3 ml/min; Est GFR (Non-African American) 98.6 ml/min; Potassium 3.9 mmol/L (3.5-5.1)
[2022-01-03] MEDS ORDERED: oxyCODONE HCL IR 5 MG TAB (IMMEDIATE RELEASE) PO PRN ×2 (07:50)
--- NOTE | 2022-01-03 08:11 | Surgery Progress Note ---
Date of Service January 03, 2022 Assessment & Plan (1) Acute cholecystitis: Plan: POD#1 laparoscopic cholecystectomy for gangrenous gallbladder WBC 14(20); Hbg 13(15). VSS, afebrile Expected post op pain, will adjust to PO pain meds today Okay to advance diet as tolerates Out of bed ambulating today Will assess later today for potential discharge if pain and diet tolerated F/U with Dr. Estrada in 2 weeks Admission and Anticipated Discharge Date Admission Date: January 01, 2022 Supervising Physician Co-Signing Physician Notes I personally saw and evaluated the patient with Neyda Álvarez PA-C and agree with the assessment and plan. 51-year-old female postoperative day 1 laparoscopic cholecystectomy for acute g angrenous cholecystitis Advance diet as tolerated Switch to p.o. pain meds Decrease IV fluids SCDs for DVT prophylaxis Encourage ambulation/incentive spirometry If she tolerates her diet she is able to be discharged home with 7-day course of p.o. antibiotics We will have her follow-up with me in 2 weeks Subjective Patient feeling well. Does have some expected post op pain in the RUQ area that is being managed with prn pain meds. Tolerating clear liquids. No nausea/vomiting. Physical Exam Physical Exam: awake/alert, no distress Gastrointestinal (Abdomen): Inspection/Auscultation: + abdomen distended (mild) and + abdominal surgical incision (surgical dressings in place, some scant drainage on epigastric site) Percussion/Palpation: + abdomen tender (discomfort in the RUQ) and abdomen soft Results & Data ([facility]) Vital Signs (Past 12 Hours) Vital Signs Temp Pulse Resp BP Pulse Ox 01/03/22 05:49 37.2 C 57 L 18 137/81 97 01/03/22 03:26 36.9 C 91 H 16 118/72 97 01/02/22 21:47 37.1 C 89 16 133/82 94 PG Care Time/CCT Total # of Minutes Spent Total Time Spent with Patient: Total time spent is greater than 50% in coordination of care (as documented) at patient's floor/unit and/or counseling patient: Coding Level of Care Code None Diagnoses Acute cholecystitis K81.0
[2022-01-03] MEDS: oxyCODONE HCL IR 5 MG TAB (IMMEDIATE RELEASE) PO PRN ×2 (08:19→12:55)
[2022-01-03] MEDS: ESCITALOPRAM OXALATE 20 MG TAB PO SCH (08:24)
[2022-01-03 12:25] VITALS: BP 142/82; PULSE 96; TEMP 98.1; O2SAT 92
--- NOTE | 2022-01-05 09:33 | Discharge Summary ---
Date of Service January 05, 2022 Admission HPI Per Admitting Provider This is a 51-year-old female who presented to [facility] on 12/20/2021 secondary to chest tightness as well as right upper quadrant abdominal pain. Patient said prior to presenting to the emergency department she had a fatty meal. She developed some nausea vomiting and a low-grade temperature of approximate 99. Because of her chest tightness she presented to the emergency department. In the emergency department that day she had labs and imaging which independent reviewed. CT scan of the chest showed no evidence of pneumonia or PE. An EKG showed normal sinus rhythm without change indicative of ischemia and cardiac enzymes are negative. There is no elevation of her LFTs or lipase. Patient was however noted to have an elevated white blood cell count of 14.6 at that time. She was felt stable for discharge home was instructed to follow-up with her primary care team. Patient is was seen by her primary care team today and the patient was complaining of some right upper quadrant abdominal pain so a gallbladder ultrasound was ordered. This study showed a distended gallbladder with gallstones and sludge. There is some nonmobile gallstone seen in the region of the gallbladder neck. There is mild thickening of the gallbladder wall up to approximately 4 mm. There is no pericholecystic fluid noted. Because the results of the ultrasound she was advised by her primary care team to present to the emergency department where I was asked to see her. I did question patient on her abdominal pain and she said thinking back over the past several months she would develop some postprandial pain in the right upper quadrant but it was not as severe as what she is presently experiencing. She does note with her current pain it does radiate to her upper back/right shoulder area. She notes pain is clearly worse after eating and is improved with morphine that has been administered in the emergency department Patient notes that she had some sips of water today but has not had any thing else in the form of oral intake. She notes she has never had any prior abdominal surgeries. She does note that she has a history of ulcerative colitis. She said this was diagnosed in 2006 when she was having mucousy bowel movements. She said the diagnosis was made by sigmoidoscopy and she is subsequent been placed on mesalamine. She says she is compliant with her medicines and has not had an ulcerative colitis flare since her initial diagnosis in 2006. She reports her most recent colonoscopy was within the past year and there is no significant pathology to the best of her knowledge. Since arrival to the emergency department she has been noted to be hemodynamically stable and afebrile. She did have repeat labs were CBC showed her white blood cell count was 20.8. Her hemoglobin, hematocrit, and platelet count were within normal range. Chemistry profile and LFTs along with a test are pending. A Covid test has also been ordered and is pending. At the time of my interview patient had received some morphine and her pain was well controlled and she was no distress. Principal Diagnosis acute cholecystitis Discharge Exam awake/alert, no distress Gastrointestinal (Abdomen) Inspection/Auscultation: + abdomen distended (mild) and + abdominal surgical incision (surgical dressings in place, some scant drainage on epigastric site) Percussion/Palpation: + abdomen tender (discomfort in the RUQ) and abdomen soft Discharge Data Allergies Allergy/AdvReac Type Severity Reaction Status Date / Time sulfamethoxazole Allergy Severe Hives Verified 01/01/22 18:45 [From Bactrim] trimethoprim [From Bactrim] Allergy Severe Hives Verified 01/01/22 18:45 Penicillins Allergy Unknown Unknown Verified 01/01/22 18:45 Consultations 01/01/22 19:56 ED Decision to Admit Stat Procedures Performed Operation Date: 01/02/22 13:25 Actual Procedures p Laparoscopic Cholecystectomy - Quentin Estrada, DO Hospital Course (1) Acute cholecystitis: This is a 51yF who presented to the [facility] on 2 with complaints of abdominal pain. Workup found evidence concerning for acute cholecystitis. Juan C smart was admitted under the surgical service and made NPO with IVF and started on IV abx. On 2 she went to the OR with Dr. Estrada for a laparoscopic cholecystectomy. The patient tolerated the procedure well, see op note for full details. She recovered in the PACU and was transferred back to the med/surg floor in stable condition. She was continued on IV abx + IVF and given a clear liquid diet. Pain controlled on prn pain medication. On POD#1 patient was feeling well. Some expected discomfort noted in the RUQ but was managed on prn pain meds. Incisions c/d/i. Diet was advanced and tolerated. She was deemed stable for discharge to home on a course of oral abx and with plans to follow up in clinic with Dr. Estrada within 2 weeks. Total Time Total Time Spent Total Time Spent (In Minutes): 15 Discharge Plan Discharge Items Patient Disposition: Home - Self-Care Reason For Visit: CHOLECYSTITIS Discharge Diagnosis: cholecystectomy Activity: Per Instructions section Lifting: No more than 10 pounds Bathing Comment: may shower over bandages; no soaking in tubs/pools Exercise/Sports: Wait until after follow-up appointment Driving/Machine Use: no driving while taking narcotics for pain Non-emergency contact: Surgeon Call non-emergency contact if: you have any medication questions, your symptoms worsen, your pain is not controlled, your pain is worsening, your pain is concerning for you, you have a fever, your temperature is above 101.5, your wound has increased redness, your wound has increased drainage and your wound pain has increased Follow-up/Referrals: Brayan Kowalski MD [Primary Care Provider] - Quentin Estrada, [Physician] - (Please call to schedule follow up in clinic within 2 weeks) Diet: Regular Addtl Attending Provider Instructions: You may purchase Tylenol and/or Ibuprofen over the counter if needed for additional pain control. Take Ibuprofen with food. You may remove your outer surgical dressing on 01/04/22. You will have small white bandages on underneath called steri-strips. You may shower with these on. They will tend to fall off on their own within 7-10 days. Please complete the full course of antibiotic prescribed to you. Pending Studies at Discharge: Yes Studies:: surgical pathology Stand-Alone Forms: My [facility] [employer], Smoking Cessation Medications and DC Order Prescriptions: New oxycodone 5 mg tablet 5 - 10 mg PO .[id number] PRN (Reason: pain, for initial therapy, max 6 tabs per day) Qty: 15 RF: 0 ciprofloxacin HCl [Cipro] 500 mg tablet 500 mg PO BID Qty: 14 RF: 0 metronidazole 500 mg tablet 500 mg PO Q8H 7 Days Qty: 21 RF: 0 Continued escitalopram oxalate 20 mg tablet 20 mg PO DAILY Qty: 30 RF: 5 Apriso 0.375 gram capsule,extended release 24hr 1.5 gm PO QAM RF: 0 Calcium 600 with Vitamin D3 600 mg(1,500mg) -400 unit tablet,chewable 1 tab PO DAILY RF: 0 pediatric multivitamin [Flintstones Multivitamin] tablet,chewable 1 tab PO DAILY RF: 0 nystatin-triamcinolone 100,000-0.1 unit/g-% cream 1 applic topical TID PRN (Reason: flare ups) RF: 0 Discharge Orders: Discharge Order (Routine); Ordered 01/03/22 Ordered By: Neyda Valdez/Other Patient Handouts: Cholecystectomy, Managing Post-Op Pain at Home Admission Data Admit Date/Time: 01/01/22 20:09 Attending Provider: Quentin Estrada Admit Provider: Quentin Estrada Primary Care Provider: Brayan Kowalski Other Providers: Quentin Estrada Other Interventions: Discharge Summary Assessment (RN) Last Done: 01/03/22 13:27 Coding Level of Care Code D/C DAY MANAGEMENT <30 MINS Diagnoses Acute cholecystitis K81.0
== END 2022-01-03 14:53 | disposition home or self-care (01) | DRG 418 ==
LOC: ED 18:19 → 3W 20:09

== ENCOUNTER 2024-09-09 07:29 | Inpatient (IN) ==
--- NOTE | 2024-09-09 07:51 | Emergency Department Note ---
ED Provider Note History of Present Illness Chief Complaint: Abdominal Pain Stated Complaint: SEVERE ABD PAIN, POSSIBLY RUPTURED OVARIAN CYST Time Seen by Provider: 09/09/24 07:39 54-year-old female who presents the emergency department for evaluation of left lower quadrant abdominal pain that started yesterday afternoon around 4 PM. The patient reports that the pain is constant with occasional sharp jabs. The patient reports that the pain worsened overnight. She has had several episodes of vomiting and nausea as well. The patient reports recent frequency of urination over the past few days. Patient has a prior history of ovarian cyst, and reports that it feels similar. The patient is currently menopausal. She denies any fever or chills, and rates her discomfort a 9 out of 10. Home Medications Medication Instructions Recorded Confirmed Type mesalamine 0.375 gram 1.5 gm PO QAM ulcerative colitis 08/09/19 09/09/24 History capsule,extended release 24 hr (Apriso) multivitamin-ferrous 1 tab PO QAM 10/31/23 09/09/24 History fumarate-folic acid 18 mg-400 mcg tablet (Centrum Women) cholecalciferol (vitamin D3) 50 50 mcg PO DAILY 04/27/24 09/09/24 History mcg (2,000 unit) capsule mecobalamin (vitamin B12) 1,000 1,000 mcg PO DAILY 04/27/24 09/09/24 History mcg chewable tablet escitalopram oxalate 20 mg tablet 20 mg PO QAM #90 tabs 07/14/24 09/09/24 Rx Allergies Allergy/AdvReac Type Severity Reaction Status Date / Time latex Allergy Severe Rash Verified 09/09/24 07:55 sulfamethoxazole Allergy Severe Hives Verified 09/09/24 07:55 [From Bactrim] trimethoprim [From Bactrim] Allergy Severe Hives Verified 09/09/24 07:55 Penicillins Allergy Unknown Unknown Verified 09/09/24 07:55 amlodipine AdvReac Mild Diarrhea Verified 09/09/24 07:55 lisinopril AdvReac Diarrhea Verified 09/09/24 07:55 Past Med/Surg History Problem List (Updated 09/09/24 @ 15:36 by Lm Arellano) Intractable pain (Acute) Hydronephrosis (Acute) Calculus of proximal left ureter (Acute) Hydronephrosis Calculus of proximal left ureter Vitamin D deficiency Vitamin B12 deficiency Encounter for pre-operative examination S/P laparoscopic cholecystectomy Anxiety (Acute) Sacroiliac joint dysfunction (Acute) Snoring (Acute) no STEVE on home sleep study 08/2018 Thyroid enlargement (Acute) Severe obstructive sleep apnea CPAP Confusion Episode 08/2023, evaluated by [place] neuro 08/2023- felt episode "likely had transient confusion from chronic UTI. I do not feel this is TGA or stroke. her mri brain findings are nonspecific and likely due to her hx of HTN, STEVE and migraine." > F/U PRN recommended by neuro. No further/recent issues. Nephrolithiasis Ulcerative colitis (Acute) stable Migraine headache (Acute) Hypertension, essential (Acute) No current meds Medical History History of COVID-19 x2, most recently 07/2023: mild cold symptoms Surgical History Hx laparoscopic cholecystectomy Laparoscopic Cholecystectomy (2021) History of oral surgery H/O colonoscopy Family History Father Hx of CABG Mother Osteoporosis Breast cancer Grandmother Alzheimer disease Sister Breast cancer Other Myocardial infarction No family history of adverse response to anesthesia Prostate cancer Denies family history of Ovarian cancer Diabetes Lung cancer Colorectal cancer Hypertension Stroke Social History Smoking Status: Never smoker Second Hand Exposure: No; Do You Dip or Chew Tobacco: No; Hx Alcohol Use: Yes Alcohol type: beer and wine Hx Substance Use: No Preferred Language: Chadian Communication Ability: Effective Visual Impairment: Limited Hearing Ability: Normal Lens Grinder Required: No Beliefs That Will Affect Care: None marital status: Current Living Situation: Spouse and Family current occupational status: employed Feels Safe at Home: Yes caffeine: Yes Dental Care, Regularly: Yes Physical Activity Frequency: 1-2 Times per Week Seatbelt Use: always Sunscreen Use: Yes Assistive Devices: None Physical Exam Vital Signs Vital Signs - 24 hr 09/09/24 07:36 09/09/24 08:57 09/09/24 09:30 Temperature 36.4 C L Temperature Source Oral Pulse Rate 86 78 Pulse Rate [Radial] 83 Pulse Rate from SpO2 Sensor Pulse Rhythm [Radial] Regular Respiratory Rate 20 18 Respiratory Effort / Characteristics Non-Labored Spontaneous Non-Labored Respiratory Depth Normal Normal Respiratory Pattern Regular Blood Pressure 170/102 H Blood Pressure [Right Arm] 163/102 H Blood Pressure Mean 124 Blood Pressure Mean [Right Arm] 122 Pulse Oximetry 99 95 Oxygen Delivery Method Room Air Room Air Sepsis Recent Fever Within 48 Hours No Sepsis New/Unexplained Change in Mental Status N/A Sepsis Action Taken by Nursing No Action Required 09/09/24 10:00 09/09/24 11:30 09/09/24 12:00 Temperature Temperature Source Pulse Rate 68 71 Pulse Rate [Radial] 86 Pulse Rate from SpO2 Sensor 68 72 Pulse Rhythm [Radial] Regular Respiratory Rate 18 17 17 Respiratory Effort / Characteristics Non-Labored Respiratory Depth Normal Respiratory Pattern Regular Blood Pressure 137/86 135/88 Blood Pressure [Right Arm] 156/96 H Blood Pressure Mean 103 103 Blood Pressure Mean [Right Arm] 116 Pulse Oximetry 94 98 98 Oxygen Delivery Method Room Air Sepsis Recent Fever Within 48 Hours Sepsis New/Unexplained Change in Mental Status Sepsis Action Taken by Nursing 09/09/24 13:03 09/09/24 13:30 09/09/24 14:06 Temperature Temperature Source Pulse Rate 78 75 74 Pulse Rate [Radial] Pulse Rate from SpO2 Sensor 79 74 74 Pulse Rhythm [Radial] Respiratory Rate 16 19 17 Respiratory Effort / Characteristics Respiratory Depth Respiratory Pattern Blood Pressure 138/96 147/91 H 151/98 H Blood Pressure [Right Arm] Blood Pressure Mean 110 109 115 Blood Pressure Mean [Right Arm] Pulse Oximetry 95 98 97 Oxygen Delivery Method Sepsis Recent Fever Within 48 Hours Sepsis New/Unexplained Change in Mental Status Sepsis Action Taken by Nursing CONSTITUTIONAL: Healthy and well nourished. Patient appears in moderately severe discomfort. HEENT: No scleral icterus or conjunctival injection. RESPIRATORY: Clear to auscultation bilaterally with no wheezing, crackles, rhonchi or stridor. CARDIOVASCULAR: Regular rate and rhythm with no murmurs, rubs or gallops. GASTROINTESTINAL: Bowel sounds present in all quadrants. Abdomen is soft and nontender to palpation. Negative CVA tenderness. MUSCULOSKELETAL: Full range of motion of all joints without discomfort. INTEGUMENTARY: No rash or other significant dermatologic conditions noted. HEMATOLOGIC: No ecchymosis or petechiae. PSYCHIATRIC: Positive affect. NEUROLOGIC: No focal neurologic deficits noted. Course Course Patient history and physical exam were performed. Nurses notes were reviewed. Also reviewed prior outside medical records, showing the patient follows with [facility] for history of ulcerative proctitis. Her last colonoscopy was in 2020, showing diverticulosis as well. The patient reports that she is scheduled for her next colonoscopy this coming December. Further review of prior medical records shows that the patient also had a laser lithotripsy this past January for a left kidney stone, and is followed by [facility]. IV access was established, labs are drawn. The patient was administered IV morphine, Toradol and Zofran for pain. Review of labs shows a moderate leukocytosis. CMP was normal without evidence for acute kidney injury. Urinalysis was delayed as the patient could not provide a urine specimen initially. CT with IV contrast of the abdomen and pelvis showed an 8 mm proximal left ureteral calculus with moderate hydronephrosis and delayed nephrogram. Findings were discussed with the patient. The patient did require additional IV Dilaudid and Zofran for pain and nausea control. At this point, I reached out to the [facility] service. They were in the OR at the time, and evaluation was delayed. They did come to the emergency department to discuss treatment options with the patient, including stent placement versus outpatient management. The patient was able provide a urine specimen at this time, and urinalysis was completed, showing no evidence for infection. Upon reevaluation, the patient reported that she was starting to feel worse with pain and nausea. At this point, urology recommended admission and they would plan on ureteral stent placement tomorrow. The patient was in agreement with this plan. The case was further discussed with the [facility] Hospitalist service, who will admit the patient. Please see hospitalist and urology dictations for further treatment and final disposition. Administered Medications Discontinued Medications Hydromorphone HCl (Hydromorphone Inj 0.5 Mg/0.5 Ml Syr) 0.5 mg IV NOW STA Stop: 09/09/24 09:27 Last Admin: 09/09/24 09:31 Dose: 0.5 mg Documented By: EMORY Sodium Chloride (Nss) 500 mls @ 999 mls/hr IV .Q31M ONE Stop: 09/09/24 09:56 Last Infusion: 09/09/24 10:06 Dose: Infused Documented By: Admin: 09/09/24 09:30 Dose: 999 mls/hr Documented By: EMORY Ceftriaxone Sodium (Rocephin) 2,000 mg in 50 mls @ 100 mls/hr IV NOW STA Stop: 09/09/24 15:03 Last Admin: 09/09/24 15:35 Dose: Not Given Documented By: EUGENIO Ioversol (Optiray 320 100ml) 100 ml IV ONCE ONE Stop: 09/09/24 08:50 Last Admin: 09/09/24 08:50 Dose: 93 ml Documented By: RANI Ketorolac Tromethamine (Ketorolac Tromethamine 15 Mg/Ml Vial) 10 mg IV NOW STA Stop: 09/09/24 07:48 Last Admin: 09/09/24 08:00 Dose: 10 mg Documented By: EMORY Morphine Sulfate (Morphine Sulfate 4 Mg/Ml 1 Ml Carp\\Vial) 4 mg IV NOW STA Stop: 09/09/24 07:48 Last Admin: 09/09/24 08:00 Dose: 4 mg Documented By: EMORY Ondansetron HCl (Ondansetron Inj 2 Mg/Ml 2 Ml Vial) 4 mg IV NOW STA Stop: 09/09/24 07:48 Last Admin: 09/09/24 08:00 Dose: 4 mg Documented By: EMORY Ondansetron HCl (Ondansetron Inj 2 Mg/Ml 2 Ml Vial) 4 mg IV NOW STA Stop: 09/09/24 10:11 Last Admin: 09/09/24 10:20 Dose: 4 mg Documented By: EMORY Ondansetron HCl (Ondansetron Inj 2 Mg/Ml 2 Ml Vial) 4 mg IV NOW STA Stop: 09/09/24 12:58 Last Admin: 09/09/24 13:07 Dose: 4 mg Documented By: JEANNETTE Medical Decision Making Medical Records Attestation: I reviewed the patient's medical records. Home Medications was personally reviewed by me Laboratory Data Attestation: I reviewed the patient's lab results. 09/09/24 07:55 09/09/24 07:55 Lab Results 09/09/24 09/09/24 Range/Units 07:55 12:53 WBC 14.87 H (4.8-10.8) K/ul RBC 5.62 H (4.20-5.40) M/uL Hgb 15.7 (12.0-16.0) g/dl Hct 47.5 H (37.0-47.0) % MCV 84.5 (80.0-100.0) fL MCH 27.9 (25.0-34.0) pg MCHC 33.1 (32.0-36.0) g/dL RDW Std Deviation 40.1 (36.4-46.3) fL RDW Coeff of Abbie 13.1 (11.5-14.5) % Plt Count 306 (130-400) K/uL MPV 9.8 (9.4-12.4) fL Immature Gran % (Auto) 0.3 % Neut % (Auto) 82.5 % Lymph % (Auto) 11.7 % Sanborn % (Auto) 5.1 % Eos % (Auto) 0.1 % Baso % (Auto) 0.3 % Neut # (Auto) 12.27 H (1.40-6.50) K/uL Lymph # (Auto) 1.74 (1.20-3.40) K/uL Sanborn # (Auto) 0.76 H (0.11-0.59) K/uL Eos # (Auto) 0.01 (0.00-0.50) K/uL Baso # (Auto) 0.04 (0.00-0.20) K/uL Immature Gran # (Auto) 0.05 (0.01-0.20) K/uL Sodium 139 (136-145) mmol/L Potassium 3.9 (3.5-5.1) mmol/L Chloride 103 (98-107) mmol/L Carbon Dioxide 25 (21-32) mmol/L Anion Gap 11 (3-11) BUN 16 (6-23) mg/dl Creatinine 1.05 (0.6-1.2) mg/dl Est Cr Clr Drug Dosing 59.0 ml/min eGFR 63.14 BUN/Creatinine Ratio 15.2 (10-20) Glucose 126 H (70-99(Fasting)) mg/dl Calcium 9.9 (8.6-10.3) mg/dl Total Bilirubin 0.8 (0.2-1.0) mg/dl AST 22 (13-39) U/L ALT 22 (7-52) U/L Alkaline Phosphatase 114 H (34-104) U/L Total Protein 8.2 (6.0-8.3) gm/dl Albumin 4.9 (3.4-5.0) gm/dl Globulin 3.3 (2.5-4.0) gm/dl Albumin/Globulin Ratio 1.5 (0.9-2) Lipase 11 (11-82) U/L Urine Color Yellow Urine Appearance Clear (Clear) Urine pH 5.5 (4.5-7.5) Ur Specific Perry > 1.045 H (1.000-1.030) Urine Protein 1+ H (Negative) Urine Glucose (UA) Negative (Negative) Urine Ketones Trace H (Negative) Urine Blood 2+ H (Negative) Urine Nitrite Negative (Negative) Urine Bilirubin Negative (Negative) Urine Urobilinogen Negative (Negative) Ur Leukocyte Esterase Negative (Negative) Urine WBC (Auto) 6-10 H (0-5) /hpf Urine RBC (Auto) 11-20 H (0-2) /hpf U Hyaline Cast (Auto) 0-2 (0-2) /lpf U Epithel Cells (Auto) 0-2 (0-2) /hpf Urine Bacteria (Auto) None Seen (None Seen) Imaging Data Attestation: I personally reviewed and interpreted this imaging study as follows: My Impression: My interpretation of a CT with IV contrast of the abdomen and pelvis shows an 8 mm left proximal ureteral calculus with moderate hydronephrosis. Radiologist report was also reviewed with concurrence. Radiologist's Impression: Abdomen/Pelvis CT 09/09/24 07:48 CT OF THE ABDOMEN AND PELVIS WITH CONTRAST CLINICAL HISTORY: Left lower quadrant abdominal pain. COMPARISON STUDY: CT of the abdomen and pelvis October 17, 2023. Renal ultrasound January 06, 2024. TECHNIQUE: Following IV administration of 93 mL of Optiray, axial images of the abdomen and pelvis were obtained from the lung bases to the proximal femurs. Images were reviewed in the axial, sagittal, and coronal planes. IV contrast was administered without complication. Automated exposure control was utilized for the study. A dose lowering technique was utilized adhering to the principles of ALARA. CT DOSE: 1349.56 mGy.cm FINDINGS: An 8 mm proximal left ureteral calculus results in moderate left hydronephrosis with delayed nephrogram and perinephric and periureteral stranding. There is no right hydronephrosis. No additional urinary calculi are present. Liver, spleen, adrenal glands and pancreas are unremarkable. There is no biliary ductal dilatation status post cholecystectomy. No evidence for a bowel obstruction. The appendix is normal. There is no lymphadenopathy. No fluid collections are present. Caliber and wall thickness of small and large bowel are normal. Colonic diverticulosis is present. There is no evidence for acute diverticulitis. IMPRESSION: 8 mm proximal left ureteral calculus which results in moderate hydronephrosis with delayed nephrogram and perinephric and periureteral stranding. ACT 112: Negative or not required by law. Electronically signed by: Chris Keller M.D. 09/09/2024 9:20 AM MDM Narrative See ED Course section for further details of today's visit. Patient presents with complaint of left flank pain that started last night, and progressively worsened this morning. CT imaging does show evidence for an 8 mm proximal left ureteral calculus. Further review of labs does not show evidence for UTI or acute kidney injury. The patient did, however, have rather significant pain and nausea that required several rounds of analgesics and antiemetics for symptomatic relief. The patient still reported not feeling well, therefore it was felt that observation overnight was warranted. If her symptoms are not improved by tomorrow, I suspect urology may consider stent placement. Laboratory studies are not suggestive of pancreatitis, cholecystitis, hepatitis, anemia or electrolyte abnormality. CT imaging also was not suggestive of appendicitis, diverticulitis, bowel obstruction or free air. Impression Calculus of proximal left ureter, Hydronephrosis, Intractable pain Discharge Plan Visit Data Chief Complaint: Abdominal Pain Stated Complaint: SEVERE ABD PAIN, POSSIBLY RUPTURED OVARIAN CYST ED Provider: Magdy Ramos ED Midlevel Provider: Lm Arellano Discharge Problem: Calculus of proximal left ureter, Hydronephrosis, Intractable pain Forms Stand Alone Forms: My [facility] [email or web address] Prescriptions Prescriptions: No Action escitalopram oxalate 20 mg tablet 20 mg PO QAM Qty: 90 3RF Rx Instructions: TAKE 1 TABLET BY MOUTH EVERY DAY [id number] Apriso 0.375 gram capsule,extended release 24hr 1.5 gm PO QAM Rx Instructions: 4 tablet dose mecobalamin (vitamin B12) 1,000 mcg tablet,chewable 1,000 mcg PO DAILY cholecalciferol (vitamin D3) 50 mcg (2,000 unit) capsule 50 mcg PO DAILY Centrum Women 18-400 mg-mcg Tablet 1 tab PO QAM Referrals Referrals: Ivana Childers DO [Primary Care Provider] - Discharge Problem: Hydronephrosis Qualifiers: Hydronephrosis type: with ureteral calculous obstruction Qualified Code(s): N 13.2 - Hydronephrosis with renal and ureteral calculous obstruction
[2024-09-09] MEDS: MoRPHine SULFATE 4 MG/ML 1 ML CARP\\VIAL IV STA (08:00)
[2024-09-09] MEDS: KETOROLAC TROMETHAMINE 15 MG/ML VIAL IV STA (08:00)
[2024-09-09] MEDS: ONDANSETRON INJ 2 MG/ML 2 ML VIAL IV STA ×3 (08:00→13:07)
[2024-09-09 08:12] LABS: Basophils # (auto) 0.04 K/uL (0.00-0.20); Basophils % (auto) 0.3 %; Eosinophils # (auto) 0.01 K/uL (0.00-0.50); Eosinophils % (auto) 0.1 %; Hematocrit (blood only) 47.5 % (37.0-47.0); Hemoglobin 15.7 g/dl (12.0-16.0); Immature Granulocytes # (auto) 0.05 K/uL (0.01-0.20); Immature Granulocytes % (auto) 0.3 %; Lymphocytes # (auto) 1.74 K/uL (1.20-3.40); Lymphocytes % (auto) 11.7 %; Mean Corpuscular Hemoglobin 27.9 pg (25.0-34.0); Mean Corpuscular Hgb Conc 33.1 g/dL (32.0-36.0); Mean Corpuscular Volume 84.5 fL (80.0-100.0); Mean Platelet Volume 9.8 fL (9.4-12.4); Monocytes # (auto) 0.76 K/uL (0.11-0.59); Monocytes % (auto) 5.1 %; Neutrophils # (auto) 12.27 K/uL (1.40-6.50); Neutrophils % (auto) 82.5 %; Platelet Count 306 K/uL (130-400); RDW Coefficient of Variation 13.1 % (11.5-14.5); RDW Standard Deviation 40.1 fL (36.4-46.3); Red Blood Count 5.62 M/uL (4.20-5.40); White Blood Count 14.87 K/ul (4.8-10.8)
[2024-09-09 08:41] LABS: Albumin Globulin Ratio 1.5 (0.9-2); Albumin Level 4.9 gm/dl (3.4-5.0); BUN Creatinine Ratio 15.2 (10-20); Bilirubin,Total 0.8 mg/dl (0.2-1.0); Calcium 9.9 mg/dl (8.6-10.3); Globulin 3.3 gm/dl (2.5-4.0); Potassium 3.9 mmol/L (3.5-5.1); Total Protein 8.2 gm/dl (6.0-8.3)
[2024-09-09] MEDS: OPTIRAY 320 100ml IV ONE (08:50)
--- NOTE | 2024-09-09 09:21 | CT Scan Report ---
CT OF THE ABDOMEN AND PELVIS WITH CONTRAST CLINICAL HISTORY: Left lower quadrant abdominal pain. COMPARISON STUDY: CT of the abdomen and pelvis October 17, 2023. Renal ultrasound January 06, 2024. TECHNIQUE: Following IV administration of 93 mL of Optiray, axial images of the abdomen and pelvis we re obtained from the lung bases to the proximal femurs. Images were reviewed in the axial, sagittal, and coronal planes. IV contrast was administered without complication. Automated exposure control wa s utilized for the study. A dose lowering technique was utilized adhering to the principles of ALARA . CT DOSE: 1349.56 mGy.cm FINDINGS: An 8 mm proximal left ureteral calculus results in moderate left hydronephrosis with delaye d nephrogram and perinephric and periureteral stranding. There is no right hydronephrosis. No additio nal urinary calculi are present. Liver, spleen, adrenal glands and pancreas are unremarkable. There i s no biliary ductal dilatation status post cholecystectomy. No evidence for a bowel obstruction. The appendix is normal. There is no lymphadenopathy. No fluid collections are present. Caliber and wall t hickness of small and large bowel are normal. Colonic diverticulosis is present. There is no evidence for acute diverticulitis. IMPRESSION: 8 mm proximal left ureteral calculus which results in moderate hydronephrosis with delay ed nephrogram and perinephric and periureteral stranding. ACT 112: Negative or not required by law. Electronically signed by: Chris Keller M.D. 09/09/2024 9:20 AM
[2024-09-09] MEDS: SODIUM CHLORIDE 0.9% 500 ML IV ONE (09:30)
[2024-09-09] MEDS: HYDROmorphone INJ 0.5 MG/0.5 ML SYR IV STA (09:31)
--- NOTE | 2024-09-09 12:33 | Urology Consultation ---
<Statement entered by Alec Redding MD - 09/10/24 06:56> I have discussed Ms. Urban's case with ALEX Babin and agree with the above documentation. History of nephrolithiasis and poor tolerance of stents in the past. She currently has an obstructing stone that is causing symptoms. It is large enough that she may have trouble passing it spontaneously and there is a good chance that she will require intervention, however she wanted to hold off on 09/09. We will work on pain/nausea control to start with. If she is still having symptoms on 09/10, we will reconsider intervention with stent placement. -Alec Redding MD. Date of Consultation September 09, 2024 Assessment & Plan (1) Calculus of proximal left ureter: 54-year-old female with history of nephrolithiasis presenting for evaluation of left flank pain and nausea. CT imaging demonstrated an obstructing 8 mm left proximal ureteral stone with hydronephrosis. Patient afebrile, hemodynamically stable Labs reviewedcreatinine 1.05, WBC 14.87, hemoglobin 15.7 Urinalysis showed 2+ blood, 6-10 WBC, 11-20 RBC; negative for LE and bacteria CT imaging reviewed and discussed We discussed options for stone management including observation, surgical intervention with left ureteral stent placement, or outpatient management if pain is controlled Ureteral stents were discussed in detail, discussed stone treatment occurring at a later date She continues to have pain and nausea/vomiting Patient poorly tolerated stent in the past and wished to consider options further Returned to discuss with patient again and she wished to hold off on stent placement today We discussed outpatient management if symptoms are controlled or admission to hospitalist service for symptom management/pain control if needed After further discussion with patient/ and ED provider, patient is getting admitted to medicine for symptom management Make NPO at midnight to reassess for surgical intervention tomorrow Continue supportive care, pain control and symptom management per hospital medicine service will follow History of Present Illness History of Present Illness This is a 54-year-old female with past medical history of hypertension, migraine, ulcerative colitis, STEVE and nephrolithiasis who presented to the emergency department for evaluation of worsening left abdominal/flank pain and nausea. On arrival, she was afebrile and hemodynamically stable. Lab work showed creatinine 1.05, WBC 14.87, hemoglobin 15.7. Workup included CT abdomen pelvis which demonstrated an obstructing 8 mm left proximal ureteral stone resulting in moderate hydronephrosis with delayed nephrogram and perinephric and periureteral stranding. She was treated with IV fluids, Hydromorphone, ketorolac, morphine and ondansetron in ED. Urology is consulted regarding left ureteral stone. Patient seen and examined in the emergency department. She is resting in litter. She reports pain has improved since arrival, rated 4 out of 10 at present. She is voiding without difficulty. No dysuria or hematuria. She has not given a urine sample in the emergency department yet. She has had intermittent nausea and vomiting since pain started. She begins to have nausea and dry heaves during our discussion. No fever or chills. She last ate/drank yesterday around 4 PM. She has history of nephrolithiasis and previously underwent left ureteroscopy for stone treatment in October [address] Chambers. Allergies Allergy/AdvReac Type Severity Reaction Status Date / Time latex Allergy Severe Rash Verified 09/09/24 07:55 sulfamethoxazole Allergy Severe Hives Verified 09/09/24 07:55 [From Bactrim] trimethoprim [From Bactrim] Allergy Severe Hives Verified 09/09/24 07:55 Penicillins Allergy Unknown Unknown Verified 09/09/24 07:55 amlodipine AdvReac Mild Diarrhea Verified 09/09/24 07:55 lisinopril AdvReac Diarrhea Verified 09/09/24 07:55 Home Medications Medication Instructions Recorded Confirmed Type mesalamine 0.375 gram 1.5 gm PO QAM ulcerative colitis 08/09/19 09/09/24 History capsule,extended release 24 hr (Apriso) multivitamin-ferrous 1 tab PO QAM 10/31/23 09/09/24 History fumarate-folic acid 18 mg-400 mcg tablet (Centrum Women) cholecalciferol (vitamin D3) 50 50 mcg PO DAILY 04/27/24 09/09/24 History mcg (2,000 unit) capsule mecobalamin (vitamin B12) 1,000 1,000 mcg PO DAILY 04/27/24 09/09/24 History mcg chewable tablet escitalopram oxalate 20 mg tablet 20 mg PO QAM #90 tabs 07/14/24 09/09/24 Rx Patient History Medical History History of COVID-19 x2, most recently 07/2023: mild cold symptoms Surgical History Hx laparoscopic cholecystectomy Laparoscopic Cholecystectomy (2021) History of oral surgery H/O colonoscopy Family History Father Hx of CABG Mother Osteoporosis Breast cancer Grandmother Alzheimer disease Sister Breast cancer Other Myocardial infarction No family history of adverse response to anesthesia Prostate cancer Denies family history of Ovarian cancer Diabetes Lung cancer Colorectal cancer Hypertension Stroke Social History Smoking Status: Never smoker Second Hand Exposure: No; Do You Dip or Chew Tobacco: No; Hx Alcohol Use: Yes Alcohol type: beer and wine Hx Substance Use: No Preferred Language: [place] Communication Ability: Effective Visual Impairment: Limited Hearing Ability: Normal Rn Angiography Required: No Beliefs That Will Affect Care: None marital status: Current Living Situation: Spouse and Family current occupational status: employed Feels Safe at Home: Yes caffeine: Yes Dental Care, Regularly: Yes Physical Activity Frequency: 1-2 Times per Week Seatbelt Use: always Sunscreen Use: Yes Assistive Devices: None Review of Systems Review of Systems: All systems reviewed & are unremarkable except as noted in HPI & below Physical Exam Constitutional: well developed and well nourished; no acute distress and not ill appearing Respiratory: normal respiratory effort; no respiratory distress and no labored breathing Gastrointestinal (Abdomen): Inspection/Auscultation: abdomen normal to inspection Musculoskeletal: Head/Neck/Chest: normocephalic Neurologic: moves all extremities and awake Psychiatric: Orientation: alert and oriented x 3 Genitourinary: no CVA tenderness Results & Data Vital Signs (Past 12 Hours) Vital Signs Temp Pulse Pulse Resp BP BP Pulse Ox 09/09/24 11:30 68 17 137/86 98 09/09/24 10:00 86 18 156/96 H 94 09/09/24 09:30 78 09/09/24 08:57 83 18 163/102 H 95 09/09/24 07:36 36.4 C L 86 20 170/102 H 99 O2 Del Method 09/09/24 11:30 10/10/24 10:00 Room Air 09/09/24 09:30 09/09/24 08:57 Room Air 09/09/24 07:36 Room Air PG Care Time/CCT Total # of Minutes Spent Total Time Spent with Patient: Total time spent is greater than 50% in coordination of care (as documented) at patient's floor/unit and/or counseling patient: Coding Level of Care Code 68653 IN/OBS CONSULT LVL 4,60M Diagnoses Calculus of proximal left ureter N20.1
[2024-09-09 13:22] LABS: Appearance Urine Clear (Clear); Bacteria Urine Automated None Seen (None Seen); Bilirubin Urine Negative (Negative); Blood Urine 2+ (Negative); Cast Urine Automated 0-2 /lpf (0-2); Color Urine Yellow; Epithelial Cell Urine Auto 0-2 /hpf (0-2); Glucose Urine UA Negative (Negative); Ketones Urine Trace (Negative); Leukocyte Esterase Urine Negative (Negative); Nitrite Urine Negative (Negative); Protein Urine 1+ (Negative); Specific Gravity Urine > 1.045 (1.000-1.030); Urobilinogen Urine Negative (Negative); pH Urine 5.5 (4.5-7.5)
--- NOTE | 2024-09-09 13:41 | History & Physical Report ---
Date of Service September 09, 2024 Assessment & Plan (1) Calculus of proximal left ureter: Plan: Acute onset of LLQ pain on the evening of 09/08 Mild leukocytosis at 14.87 with a neutrophil predominance; afebrile A/P CT on arrival revealed an 8 mm proximal left ureteral calculus One prior incidence of kidney stones Urology consult appreciated They are unable to take her for stent today, but will reevaluate the morning of 09/10 Given leukocytosis and A/P CT does reveal perinephric stranding, will cover with Cefepime 2000 mg IV x 1 Discussed patient's PCN allergy at bedside; no history of anaphylaxis or throat closure with PCN, but she does report "tongue swelling" Discussed case with pharmacy Patient has tolerated Cefepime x 6 doses in January 2022 While Cefepime is more broad-spectrum then Rocephin, will plan on cefepime from an allergy standpoint Urine strainer ordered Pain control with IV acetaminophen and morphine as needed IV antiemetics with Zofran as needed Tamsulosin HS NSS 500 mL IV bolus x 1 Encourage fluid intake up until 4 AM on 09/09 Will defer additional fluids due to national IVF shortage A.m. CBC, BMP (2) Hydronephrosis: Plan: Treatment (as above) (3) Ulcerative colitis: Plan: Discussed with pharmacy, we do not have extended release mesalamine on formulary Patient's reports he can bring in from home Continue mesalamine; okay to take prescription on arrival (4) Severe obstructive sleep apnea: Plan: CPAP HS (5) Anxiety: Plan: Continue escitalopram Plan [facility] Full [facility] Regular diet, then n.p.o. at midnight VTE PPx: SCDs History of Present Illness Chief Complaint: Abdominal pain Primary Care Provider: DO Susanna Vargas is a pleasant 54-year-old female with PMH of HTN, UC, nephrolithiasis, ovarian cyst, severe STEVE, anxiety, and vitamin D/B12 deficiency. She presented on 09/09 for left lower quadrant abdominal pain that began yesterday around 1600. Pain came on suddenly, and she characterizes it as a sharp, stabbing pain that was constant yesterday, but is coming in waves today. Pain is located in the left lower quadrant of her abdomen with radiation around the flank to the lower back. She rates it 2/10 after receiving pain medicine in the ED; 9/10 at worst. She took extra strength Tylenol last night, but this did not help. Moving in different positions did not alleviate the pain. She also reports that she began vomiting last night, which she believes is due to the pain. She does have a history of an 8 mm kidney stone back in October 2023 that required a stent. Patient did not take her regular morning medications today; no recent change in medications. She is not on supplemental oxygen at baseline, but does note that her SpO2 was dropping to the 80-89% range in the ED and she was given additional oxygen. He uses a CPAP at night. Patient has not had anything to eat since yesterday around 4 PM. Patient denies smoking or tobacco use. She does endorse occasional alcohol use; 3-5 drinks per week; 1 alcoholic drink yesterday. Patient does report that she has a penicillin allergy, but is unsure what happens when she takes them as her reaction was a very long time ago; she believes her tongue swelled up; she denies throat closure or anaphylaxis, and does not believe she had hives. She reports she is amenable to trying Ceftriaxone and/or Cefepime after discussion of risks/benefits. Patient is mildly hypertensive at 147/91 at time of admission; vitals otherwise stable. ED course: Dilaudid 0.5mg IV Toradol 10mg IV Morphine 4mg IV Zofran 4mg IV x 3 NSS 500mL IV ROS: Patient endorses dizziness/lightheadedness, LLQ abdominal pain, left flank/lower back pain, nausea, vomiting, increased urinary frequency, Patient denies fever, chills, nigh-sweats, LUCIA, chest pain, SOB, pleuritic CP, chest palpitations, cough, diarrhea, dysuria, blood in urine/stool, saddle anesthesia, or N/T in the legs. Allergies Allergy/AdvReac Type Severity Reaction Status Date / Time latex Allergy Severe Rash Verified 09/09/24 07:55 sulfamethoxazole Allergy Severe Hives Verified 09/09/24 07:55 [From Bactrim] trimethoprim [From Bactrim] Allergy Severe Hives Verified 09/09/24 07:55 Penicillins Allergy Unknown Unknown Verified 09/09/24 07:55 amlodipine AdvReac Mild Diarrhea Verified 09/09/24 07:55 lisinopril AdvReac Diarrhea Verified 09/09/24 07:55 Home Medications Medication Instructions Recorded Confirmed Type mesalamine 0.375 gram 1.5 gm PO QAM ulcerative colitis 08/09/19 09/09/24 History capsule,extended release 24 hr (Apriso) multivitamin-ferrous 1 tab PO QAM 10/31/23 09/09/24 History fumarate-folic acid 18 mg-400 mcg tablet (Centrum Women) cholecalciferol (vitamin D3) 50 50 mcg PO DAILY 04/27/24 09/09/24 History mcg (2,000 unit) capsule mecobalamin (vitamin B12) 1,000 1,000 mcg PO DAILY 04/27/24 09/09/24 History mcg chewable tablet escitalopram oxalate 20 mg tablet 20 mg PO QAM #90 tabs 07/14/24 09/09/24 Rx Past Med/Surg History Problem List Hydronephrosis Calculus of proximal left ureter Vitamin D deficiency Vitamin B12 deficiency Encounter for pre-operative examination S/P laparoscopic cholecystectomy Anxiety (Acute) Sacroiliac joint dysfunction (Acute) Snoring (Acute) no STEVE on home sleep study 08/2018 Thyroid enlargement (Acute) Severe obstructive sleep apnea CPAP Confusion Episode 08/2023, evaluated by [place] neuro 08/2023- felt episode "likely had transient confusion from chronic UTI. I do not feel this is TGA or stroke. her mri brain findings are nonspecific and likely due to her hx of HTN, STEVE and migraine." > F/U PRN recommended by neuro. No further/recent issues. Nephrolithiasis Ulcerative colitis (Acute) stable Migraine headache (Acute) Hypertension, essential (Acute) No current meds Medical History History of COVID-19 x2, most recently 07/2023: mild cold symptoms Surgical History Hx laparoscopic cholecystectomy Laparoscopic Cholecystectomy (2021) History of oral surgery H/O colonoscopy Family History Father Hx of CABG Mother Osteoporosis Breast cancer Grandmother Alzheimer disease Sister Breast cancer Other Myocardial infarction No family history of adverse response to anesthesia Prostate cancer Denies family history of Ovarian cancer Diabetes Lung cancer Colorectal cancer Hypertension Stroke Social History Smoking Status: Never smoker Second Hand Exposure: No; Do You Dip or Chew Tobacco: No; Hx Alcohol Use: Yes Alcohol type: beer and wine Hx Substance Use: No Preferred Language: [place]i Communication Ability: Effective Visual Impairment: Limited Hearing Ability: Normal Grief Counsellor Required: No Beliefs That Will Affect Care: None marital status: Current Living Situation: Spouse and Family current occupational status: employed Feels Safe at Home: Yes caffeine: Yes Dental Care, Regularly: Yes Physical Activity Frequency: 1-2 Times per Week Seatbelt Use: always Sunscreen Use: Yes Assistive Devices: None Review of Systems Review of Systems: See HPI above Physical Exam Physical Exam: General: no acute distress; pleasant affect; at bedside; non-toxic appearing; well-nourished; cooperative HEENT: normocephalic, atraumatic; no scleral icterus; PERRLA; vision and hearing grossly intact Neck: supple; no lymphadenopathy; trachea midline Skin: warm, dry without signs of tenting; no cyanosis; no rashes, bruising, lesions, or erythema noted CV: chest wall NTP; RRR; S1/S2 normal; no murmurs/rubs/gallops; pulses intact and symmetric at radial, DP, and PT Lungs: no acute respiratory distress; symmetrical chest wall expansion; clear breath sounds across all lung scales w/o adventitious sounds; no wheezing ABD: Soft, NTP in all 4 quadrants; BS present; no rebound/guarding; no distention Back: Mild left-sided CVA tenderness; no signs of bruising on the abdomen/flank/back MSK: no tics or fasciculations; no edema noted in the LEs b/l, nonerythematous Neuro: A&Ox3; normal mood and affect; fluent speech; no focal deficits; sensation grossly intact in the LEs b/l Results & Data Results & Data Vital Signs (Past 12 Hours) Vital Signs Temp Pulse Pulse Resp BP BP Pulse Ox 09/09/24 12:00 71 17 135/88 98 09/09/24 11:30 68 17 137/86 98 09/09/24 10:00 86 18 156/96 H 94 09/09/24 09:30 78 09/09/24 08:57 83 18 163/102 H 95 09/09/24 07:36 36.4 C L 86 20 170/102 H 99 O2 Del Method 09/09/24 12:00 09/09/24 11:30 09/09/24 10:00 Room Air 09/09/24 09:30 09/09/24 08:57 Room Air 09/09/24 07:36 Room Air Laboratory Results Abnormal lab results 09/09/24 09/09/24 Range/Units 07:55 12:53 WBC 14.87 H (4.8-10.8) K/ul RBC 5.62 H (4.20-5.40) M/uL Hct 47.5 H (37.0-47.0) % Neut # (Auto) 12.27 H (1.40-6.50) K/uL [place] # (Auto) 0.76 H (0.11-0.59) K/uL Glucose 126 H (70-99(Fasting)) mg/dl Alkaline Phosphatase 114 H (34-104) U/L Ur Specific [place] > 1.045 H (1.000-1.030) Urine Protein 1+ H (Negative) Urine Ketones Trace H (Negative) Urine Blood 2+ H (Negative) Urine WBC (Auto) 6-10 H (0-5) /hpf Urine RBC (Auto) 11-20 H (0-2) /hpf Diagnostic Findings Abdomen/Pelvis CT 09/09/24 07:48 CT OF THE ABDOMEN AND PELVIS WITH CONTRAST CLINICAL HISTORY: Left lower quadrant abdominal pain. COMPARISON STUDY: CT of the abdomen and pelvis October 17, 2023. Renal ultrasound January 06, 2024. TECHNIQUE: Following IV administration of 93 mL of Optiray, axial images of the abdomen and pelvis were obtained from the lung bases to the proximal femurs. Images were reviewed in the axial, sagittal, and coronal planes. IV contrast was administered without complication. Automated exposure control was utilized for the study. A dose lowering technique was utilized adhering to the principles of ALARA. CT DOSE: 1349.56 mGy.cm FINDINGS: An 8 mm proximal left ureteral calculus results in moderate left hydronephrosis with delayed nephrogram and perinephric and periureteral stranding. There is no right hydronephrosis. No additional urinary calculi are present. Liver, spleen, adrenal glands and pancreas are unremarkable. There is no biliary ductal dilatation status post cholecystectomy. No evidence for a bowel obstruction. The appendix is normal. There is no lymphadenopathy. No fluid collections are present. Caliber and wall thickness of small and large bowel are normal. Colonic diverticulosis is present. There is no evidence for acute diverticulitis. IMPRESSION: 8 mm proximal left ureteral calculus which results in moderate hydronephrosis with delayed nephrogram and perinephric and periureteral stranding. ACT 112: Negative or not required by law. Electronically signed by: Chris Keller M.D. 09/09/2024 9:20 AM Code Status & VTE Plan Code Status Full code VTE Prophylaxis Plan VTE Prophylaxis will be ordered: Yes PG Care Time/CCT Total # of Minutes Spent Total Time Spent with Patient: Total time spent is greater than 50% in coordination of care (as documented) at patient's floor/unit and/or counseling patient: Coding [place] [address] INT INP/OBS CARE 3/75MIN Patient Type Established History Comprehensive Exam Comprehensive Medical Decision Making High Complexity Diagnoses Calculus of proximal left ureter N20.1 Hydronephrosis N13.30 Ulcerative colitis K51.90 Severe obstructive sleep apnea G47.33 Anxiety F41.9
--- OUTSIDE RECORDS SUMMARY | 2024-09-09 13:54 | External Medical Summary | Summary of Care ---
Author Name Unknown Organization [facility] Address [address] [place] [address] Phone [phone] Care Team Providers Care Family Service Center Director Name Role Phone Brayan Kowalski MD Primary Care Provider [phone] Reason for Visit * Reason Onset Date Comments Medication Refill 06/18/2024 Medication Question 06/21/2024 Encounter Details Date Type Department Care Team (Late st Contact Info) Description 06/18/2024 Refill Gastroenterology, [facility] [address] [place] [address] Micheline Herrera, DO [address] [place] [address] Ulcerative proctitis without complication (HCC) Allergies Active Allergy Reactions Criticality Noted Date Comments Penicillins Edema face/lips/tongue High 07/04/2009 Sulfa Antibiotics 01/28/2012 Whole body rash Trimethoprim 02/21/2022 documented as of this encounter (statuses as of 06/22/2024) Medications Medication Sig Dispensed Refills Start Date End Date Status amLODIPine Besylate 5 MG Oral Tablet (Norvasc) 02/19/2022 Active Escitalopram Oxalate 20 MG Oral Tablet (Lexapro) 02/15/2022 Active Multivitamin Adult Oral Tablet Take by mouth. Active Mesalamine ER 0.375 GM Oral Capsule Extended Release 24 Hour (Apriso)Indication s:Ulcerative proctitis without complication (HCC) Take 4 Capsules by mouth in the morning. 360 Capsule 1 06/22/2024 Active Mesalamine ER 0.375 GM Oral Capsule Extended Release 24 Hour (Apriso)Indication s:Ulcerative proctitis without complication (HCC) Take 4 Capsules by mouth in the morning. 360 Capsule 3 08/05/2023 4 Discontinue d(Refill) Mesalamine ER 0.375 GM Oral Capsule Extended Release 24 Hour (Apriso)Indication s:Ulcerative proctitis without complication (HCC) Take 4 Capsules by mouth in the morning. 120 Capsule 1 06/18/2024 4 Discontinue d(Refill) documented as of this encounter (statuses as of 06/22/2024) Active Problems Problem Noted Date Diagnosed Date ENTERITIS ULCERATIVE PROCTITIS 02/22/2010 documented as of this encounter (statuses as of 06/22/2024) Immunizations Name Administration Dates Next Due Seasonal Influenza, Split, IIV3, With Preserve, Inj 08/31/2011 documented as of this encounter Social History Tobacco Use Types Packs/Day Years Used Date Smoking Tobacco: Never Smokeless Tobacco: Never Alcohol Use Standard Drinks/Week Comments Yes 0 (1 standard drink = 0.6 oz pur e alcohol) social Utilities Answer Date Recorded Do you have trouble paying y our heating, water, or electric bill? (Adult - for ages 18 years and over) Not on file 05/18/2024 Is your family able to pay t he heat, water, or electric bill? (Household - for ages 0-17 years) Not on file 05/18/2024 Does your family have access to good internet? (Household - for ages 0-17 years) Not on file 05/18/2024 Social Connections Answer Date Recorded How often do you feel lonely or isolated from those around you? (Adult - for ages 18 years and over) Not on file 05/18/2024 Sex and Gender Information Value Date Recorded Sex Assigned at Female 01/02/2024 2:16 PM EST Gender Identity Female 01/02/2024 2:16 PM EST Sexual Orientation Straight 01/02/2024 2: 16 PM EST Job Start Date Occupation Industry Not on file Not on file Not on file documented as of this encounter Miscellaneous Notes * Addendum Note - Loree Rodriguez CRNP - 06/22/2024 10:42 AM EDTAddended by: LOREE RODRIGUEZ on: 06/22/2024 10:42 AM Modules accepted: Orders * Telephone Encounter - Loree Rodriguez CRNP - 06/22/2024 10:41 AM EDT Updated Rx for 90 days supply sent Loree S ALEX Rodriguez * Telephone Encounter - Jo Swanson OSA - 06/22/2024 10:25 AM EDT Pt calling in stating that she is has been out of the medication for over a week now. And pt is wanting to know if the prescription can be sent to the pharmacy for the 90 days an not the 60 cause it is going to cost the pt over 400 dollars and if she gets the 90 day then she gets her discount for the medication. * Telephone Encounter - Salma Mallory shim plug cutter - 06/22/2024 10:20 AM EDT pt calling to check on status of mesalamine. Caller can be reached at [phone]. Please send 90 day supply TEVIN she has been out for days. Pt requested to be transferred to the office. Thank you, Salma Mallory Quality Assurance Associate I [facility] ([facility]) (formerly Telepharmacy) 06/22/2024,10:20 AM * Telephone Encounter - Pura Wick CRNP - 06/21/2024 6:15 PM EDT Not sure why this was sent to me. Appears that it was signed by Loree on 06/18 at 2:19 PM. * Telephone Encounter - Salma Mallory shim plug cutter - 06/21/2024 4:19 PM EDT pt calling to check on status of mesalamine. Caller can be reached at [phone]. Please send TEVIN as pt is out and is upset that she has not been abole to get her 90 day supply. Thank you, Salma Mallory Quality Assurance Associate I [facility] ([facility]) (formerly Telepharmacy) 06/21/2024,4:19 PM * Telephone Encounter - Diane Morgan OSA - 06/21/2024 12:53 PM EDT Pt has appt 07/10/24 with Pura Wick * Telephone Encounter - Lucy Suazo CPhT - 06/21/2024 11:10 AM EDT Pt called to request a 90 day supply for Mesalamine ER 0.375 mg. If agreeable please send to [facility]- [place]. Pt stated the 60 day supply will cost $400.00 and is requesting a 90 day supply. Transferred to scheduling dept for appt. Thank you, Bethanie Suazo Pastoral Worker III [facility] ([facility]) 06/21/2024,11:10 AM * Telephone Encounter - Yin Kelley CMA - 06/18/2024 2:55 PM EDT Pt notified RX sent to [facility] and she will call back to schedule a GI f/u appt. * Telephone Encounter - Loree Rodriguez CRNP - 06/18/2024 2:38 PM EDT Pt needs GI f/u prior to next refill ALEX Lange * Telephone Encounter - Loree Rodriguez CRNP - 06/18/2024 2:38 PM EDT Signed Prescriptions: Disp Refills Mesalamine ER 0.375 GM Oral Capsule Extend*120 Ca*1 Sig: Take 4 Capsules by mouth in the morning. Authorizing Provider: LOREE RODRIGUEZ * Telephone Encounter - Yin Kelley CMA - 06/18/2024 2:12 PM EDTPending Prescriptions: Disp Refills Mesalamine ER 0.375 GM Oral Capsule Extend*120 Ca*1 Sig: Take 4 Capsules by mouth in the morning. * Telephone Encounter - Yin Kelley CMA - 06/18/2024 2:12 PM EDT Did you pend patient's preferred pharmacy and medication before forwarding?yes Pharmacy: [facility]-[address]- [place] Pending Prescriptions: Disp Refills Mesalamine ER 0.375 GM Oral Capsule Exten*120 Ca*1 Sig: Take 4 Capsules by mouth in the morning. Last Visit: 10/14/2023 (in office), 02/21/2022 (telemedicine) Patient Phone Numbers Labs: Lab Results Component Value Date/Time CREAT 0.8 12/16/2018 11:04 AM POTASSIUM 4.2 12/16/2018 11:04 AM TSH 1.16 12/16/2018 11:04 AM * Telephone Encounter - Michelle Bonilla [facility] - 06/18/2024 1:57 PM EDTPending Prescriptions: Disp Refills Mesalamine ER 0.375 GM Oral Capsule Extend*120 Ca*1 Sig: Take 4 Capsules by mouth in the morning. * Telephone Encounter - Hui Pate CPhT - 06/18/2024 1:38 PM EDT Pt is currently visiting [place], and had last refill of medication transferred to a local pharmacy. She was requesting that the refill be sent back to [facility] pharmacy. Pt would like to potato picker med on Friday06/21/2024 Please reroute Rx to [facility]- [place]. Pending Prescriptions: Disp Refills Mesalamine ER 0.375 GM Oral Capsule Exten*360 Ca*0 Sig: Take 4 Capsules by mouth in the morning. Last Visit: 10/14/2023 (in office), 02/21/2022 (telemedicine) Visit date not found If no future appointments scheduled, and last appointment is greater than a year ago, please schedule patient for a follow-up appointment Last date the medication was ordered: 08/05/2023 Patient Phone Numbers Labs: Lab Results Component Value Date/Time CREAT 0.8 12/16/2018 11:04 AM POTASSIUM 4.2 12/16/2018 11:04 AM TSH 1.16 12/16/2018 11:04 AM documented in this encounter Plan of Treatment Upcoming Encounters Date Type Department Care Team (Late st Contact Info) Description 07/20/2024 9:00 AM EDT Telemedicine Gastroenterology, [facility] [address] [place] [address] Pura Wick CRNP [address] [place] [address] Scheduled Procedures Name Priority Associated Diagnoses Date/Ti me COLONOSCOPY FLEXIBLE PROXIMAL DIAGNOSTIC Recall Screen for colon cancer Health Maintenance Due Date Last Done Comments Lipid Panel 1970 Depression Screening 1982 HIV Screening 1985 Hepatitis C Screening 1988 DTaP,Tdap,and Td Vaccines (1 - Tdap) 1989 Hepatitis B Vaccine (1 of 3 - 19+ 3-dose series) 1989 Pap Smear 1991 Cervical Cancer Screening 2000 HPV/Co-Test 2000 Mammogram 2010 Cologuard 2015 Fecal Occult Blood Test 2015 Sigmoidoscopy 2015 Zoster Vaccines (1 of 2) 2020 Diabetes Screening 12/16/2021 12/16/2018, 1 01/01/2017, 08/07/2016, Additional history exists COVID-19 Vaccine (2022- season) 2023 08/28/2022, 04/23/2022, 10/01/2021, Additional history exists Colonoscopy 03/12/2024 03/12/2021, 03/01, 06/13/2014, Additional history exists Colorectal Cancer Screening 03/12/2024 Influenza Vaccine (FLU shot) (#1) 2024 08/31/2011 Pneumococcal Vaccine: Pediatrics (0 to 5 Years) and At-Risk Patients (6 to 64 Years) Aged Out 10/04/2010 No longer eligible based on patient's age to complete this topic HPV (Gardasil) Vaccine Aged Out No lo nger eligible based on patient's age to complete this topic MENINGOCOCCAL (MENACTRA/MENVEO) Aged Out No longer eligible based on patient's age to complete this topic documented as of this encounter Medical Devices Not on filedocumented as of this encounter Visit Diagnoses Diagnosis Ulcerative proctitis without complication (HCC) documented in this encounter Care Teams Family Service Center Director Relationship Specialty Start Date End Date Brayan Kowalski MD PCP - General Internal Medicine 08/16/15 documented as of this encounter
--- OUTSIDE RECORDS SUMMARY | 2024-09-09 13:54 | External Medical Summary | Summary of Care ---
Author Name Unknown Organization [facility] Address [address] [place] [address] Phone [phone] Care Team Providers Care Tobacco Wetter Name Role Phone Brayan Kowalski MD Primary Care Provider [phone] Reason for Visit * Reason Onset Date Comments Medication Refill 06/18/2024 Medication Question 06/21/2024 Encounter Details Date Type Department Care Team (Late st Contact Info) Description 06/18/2024 Refill Gastroenterology, [facility] [address] [place] [address] Micheline Herrera, DO [address] [place] [address] Ulcerative proctitis without complication (HCC) Allergies Active [...] in the morning. 120 Capsule 1 06/18/2024 Active Mesalamine ER 0.375 GM Oral Capsule Extended Release 24 Hour (Apriso)Indication s:Ulcerative proctitis without complication (HCC) Take 4 Capsules by mouth in the morning. 360 Capsule 3 08/05/2023 4 Discontinue d(Refill) documented as of this [...] as of this encounter Miscellaneous Notes * Telephone Encounter - Jo Swanson OSA [...] medication. * Telephone Encounter - Salma Mallory automotive painter helper - 06/22/2024 10:20 AM EDT pt calling to check on status of mesalamine. Caller can be reached at [phone]. Please send 90 day supply TEVIN she has been out for days. Pt requested to be transferred to the office. Thank you, Salma Mallory Geological Engineer I [facility] ([facility]) (formerly Telepharmacy) 06/22/2024,10:20 AM * Telephone Encounter - Pura Wick CRNP - 06/21/2024 6:15 PM EDT Not sure why this was sent to me. Appears that it was signed by Loree on 06/18 at 2:19 PM. * Telephone Encounter - Salma Mallory automotive painter helper - 06/21/2024 4:19 PM EDT pt calling to check on status of mesalamine. Caller can be reached at [phone]. Please send TEVIN as pt is out and is upset that she has not been abole to get her 90 day supply. Thank you, Salma Mallory Geological Engineer I [facility] ([facility]) (formerly Telepharmacy) 06/21/2024,4:19 PM * Telephone Encounter - Diane Morgan OSA - 06/21/2024 12:53 PM EDT Pt has appt 07/10/24 with Pura iWck * Telephone Encounter - Lucy Suazo CPhT - 06/21/2024 11:10 AM EDT Pt called to request a 90 day supply for Mesalamine ER 0.375 mg. If agreeable please send to [facility] [place]. Pt stated the 60 day supply will cost $400.00 and is requesting a 90 day supply. Transferred to scheduling dept for appt. Thank you, Bethanie Suazo Manager Occupational III [facility] ([facility]) 06/21/2024,11:10 AM * Telephone Encounter - Yin Kelley CMA - 06/18/2024 2:55 PM EDT Pt notified RX sent to [facility] and she will call back [...] pharmacy and medication before forwarding?yes Pharmacy: [facility]- [place] Pending Prescriptions: Disp Refills Mesalamine ER 0.375 GM Oral Capsule Exten*120 Ca*1 Sig: Take 4 Capsules by mouth in the morning. Last Visit: 10/14/2023 (in office), 02/21/2022 (telemedicine) Patient Phone Numbers mobile [phone] Labs: Lab Results Component Value Date/Time CREAT 0.8 12/16/2018 11:04 AM POTASSIUM 4.2 12/16/2018 11:04 AM TSH 1.16 12/16/2018 11:04 AM * Telephone Encounter - Michelle Bonilla RP - 06/18/2024 1:57 PM EDTPending Prescriptions: Disp Refills Mesalamine ER 0.375 GM Oral Capsule Extend*120 Ca*1 Sig: Take 4 Capsules by mouth in the morning. * Telephone Encounter - Hui Pate CPhT - 06/18/2024 1:38 PM EDT Pt is currently visiting [place], and had last refill of medication transferred to a local pharmacy. She was requesting that the refill be sent back to [facility] pharmacy. 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- [place]. Pending Prescriptions: Disp Refills [...] Description 07/20/2024 9:00 AM EDT Telemedicine Gastroenterology, [facility] [address] [place] [address] Pura Wick CRNP [address] [place] [address] Scheduled Procedures Name Priority Associated Diagnoses Date/Ti [...] 01/01/2017, 08/07/2016, Additional history exists COVID-19 Vaccine ( season) 2023 08/28/2022, 04/23/2022, 10/01/2021, Additional history [...] (HCC) documented in this encounter Care Teams Tobacco Wetter Relationship Specialty Start Date End Date Brayan Kowalski MD PCP - General Internal Medicine 08/16/15 documented as of this encounter
--- OUTSIDE RECORDS SUMMARY | 2024-09-09 13:54 | External Medical Summary | Summary of Care ---
Author Name Unknown Organization [facility] Address [address] [place] [address] Phone [phone] Care Team Providers Care Proposal Director Name Role Phone Brayan Kowalski MD Primary Care Provider [phone] Reason for Visit * Reason Onset Date Comments Medication Refill 06/18/2024 Medication Question 06/21/2024 Encounter Details Date Type Department Care Team (Late st Contact Info) Description 06/18/2024 Refill Gastroenterology, [facility] [address] [place] [address] Micheline Herrera, DO [address] [place] [address] Ulcerative proctitis without complication (HCC) Allergies Active [...] encounter Miscellaneous Notes * Telephone Encounter - Ani Kendall LPN - 06/22/2024 10:47 AM EDT Susanna is aware * Addendum Note - Loree Rodriguez CRNP - 06/22/2024 10:42 AM EDTAddended by: LOREE RODRIGUEZ on: 06/22/2024 10:42 AM Modules accepted: Orders * Telephone Encounter - Loree Rodriguez CRNP - 06/22/2024 10:41 AM EDT Updated Rx for 90 days supply sent ALEX Lange * Telephone Encounter - Jo Swanson OSA [...] medication. * Telephone Encounter - Salma Mallory paint stockman - 06/22/2024 10:20 AM EDT pt calling to check on status of mesalamine. Caller can be reached at [phone]. Please send 90 day supply TEVIN she has been out for days. Pt requested to be transferred to the office. Thank you, Salma Mallory Transaction Manager I [facility] ([facility]) (formerly Telepharmacy) 06/22/2024,10:20 AM * Telephone Encounter - Pura Wick CRNP - 06/21/2024 6:15 PM EDT Not sure why this was sent to me. Appears that it was signed by Loree on 06/18 at 2:19 PM. * Telephone Encounter - Salma Mallory, paint stockman - 06/21/2024 4:19 PM EDT pt calling to check on status of mesalamine. Caller can be reached at [phone]. Please send TEVIN as pt is out and is upset that she has not been abole to get her 90 day supply. Thank you, Salma Mallory Transaction Manager I [facility] ([facility]) (formerly Telepharmacy) 06/21/2024,4:19 PM * Telephone Encounter - Diane Morgan OSA - 06/21/2024 12:53 PM EDT Pt has appt 07/10/24 with Pura Wick * Telephone Encounter - Lucy Suazo CPhT - 06/21/2024 11:10 AM EDT Pt called to request a 90 day supply for Mesalamine ER 0.375 mg. If agreeable please send to [facility]- [place]. Pt stated the 60 day supply will cost $400.00 and is requesting a 90 day supply. Transferred to scheduling dept for appt. Thank you, Bethanie Suazo License Distributor III [facility] ([facility]) 06/21/2024,11:10 AM * Telephone Encounter - Yin Kelley CMA - 06/18/2024 2:55 PM EDT Pt notified RX sent to [facility] and she will call back [...] pharmacy and medication before forwarding?yes Pharmacy: [facility]- [place] Pending Prescriptions: Disp Refills Mesalamine ER 0.375 GM Oral Capsule Exten*120 Ca*1 Sig: Take 4 Capsules by mouth in the morning. Last Visit: 10/14/2023 (in office), 02/21/2022 (telemedicine) Patient Phone Numbers Labs: Lab Results Component Value Date/Time CREAT 0.8 12/16/2018 11:04 AM POTASSIUM 4.2 12/16/2018 11:04 AM TSH 1.16 12/16/2018 11:04 AM * Telephone Encounter - Michelle Bonilla [facility] - 06/18/2024 1:57 PM EDTPending Prescriptions: Disp Refills Mesalamine ER 0.375 GM Oral Capsule Extend*120 Ca*1 Sig: Take 4 Capsules by mouth in the morning. * Telephone Encounter - Hui Pate CPhT - 06/18/2024 1:38 PM EDT Pt is currently visiting [place], and had last refill of medication transferred to a local pharmacy. She was requesting that the refill be sent back to [facility] pharmacy. Pt would like to corn picker med on Friday06/21/2024 Please reroute Rx to [facility]- [place]. Pending Prescriptions: Disp Refills [...] Description 07/20/2024 9:00 AM EDT Telemedicine Gastroenterology, [facility] [address] [place] [address] Pura Wick CRNP [address] [place] [address] Scheduled Procedures Name Priority Associated Diagnoses Date/Ti [...] (HCC) documented in this encounter Care Teams Proposal Director Relationship Specialty Start Date End Date Brayan Kowalski MD PCP - General Internal Medicine 08/16/15 documented as of this encounter
--- OUTSIDE RECORDS SUMMARY | 2024-09-09 13:54 | External Medical Summary ---
Author Name Unknown Address Unknown Organization [id number]:[facility] - [address] [facility] [address] [place] [address] Laboratory Report Ordering Provider Test Date Status [place] 07/28/2024 16:19:01 Final Observation Date Value Abnormality Reference (Units ) Status SYNC LEUKOCYTES IN BLOOD BY AUTOMATED COUNT 07/28/2024 16:19:01 10.17 4.00-10.80 (K/uL) Final Segs 07/28/2024 16:19:01 59.2 40.0-75.0 (%) Final Lymphs % 07/28/2024 16:19:01 31.7 18.0-42.0 (%) Final Monos 07/28/2024 16:19:01 6.6 1.0-11.0 (%) Final Eosinophils 07/28/2024 16:19:01 1.4 0.0-6.0 (%) Final Basos 07/28/2024 16:19:01 0.7 0.0-2.0 (%) Final Immature Granulocyte, Percent 07/28/2024 16:19:01 0.4 0.0-2.0 (%) Final Absolute Segs 07/28/2024 16:19:01 6.03 1.80-7.70 (K/uL) Final Lymphs, absolute 07/28/2024 16:19:01 3.22 1.00-4.80 (K/ul) Final Monos, Abs 07/28/2024 16:19:01 0.67 0.00-1.10 (K/uL) Final Eos, Abs 07/28/2024 16:19:01 0.14 0.00-0.70 (K/uL) Final Basos, Abs 07/28/2024 16:19:01 0.07 0.00-0.20 (K/uL) Final Immature Granulocytes, Number 07/28/2024 16:19:01 0.04 0.00-0.20 (K/uL) Final Performing Location [facility] - [address] [facility] [address]
--- OUTSIDE RECORDS SUMMARY | 2024-09-09 13:54 | External Medical Summary | Summary of Care ---
Author Name Unknown Organization [facility] Address [address] [facility] [address] [address] Phone [phone] Care Team Providers Care Field Sales Representative Name Role Phone Brayan Kowalski MD Primary Care Provider [phone] Encounter Details Date Type Department Care Team (Late st Contact Info) Description 07/22/2024 Orders Only PATIENT PORTAL DO NOT DELETE THIS DEPT USED BY [place] [place] [id number] Allergies Active Allergy Reactions Criticality Noted Date Comments Penicillins Edema face/lips/tongue High 07/04/2009 Sulfa Antibiotics 01/28/2012 Whole body rash Trimethoprim 02/21/2022 documented as of this encounter (statuses as of 07/22/2024) Medications Medication Sig Dispensed Refills Start Date End Date Status amLODIPine Besylate 5 MG Oral Tablet (Norvasc) 02/19/2022 Active Escitalopram Oxalate 20 MG Oral Tablet (Lexapro) 02/15/2022 Active Multivitamin Adult Oral Tablet Take by mouth. Active Mesalamine ER 0.375 GM Oral Capsule Extended Release 24 Hour (Apriso)Indications: Ulcerative proctitis without complication (HCC) Take 4 Capsules by mouth in the morning. 360 Capsule 1 06/22/2024 Active documented as of this encounter (statuses as of 07/22/2024) Active Problems Problem Noted Date Diagnosed Date ENTERITIS ULCERATIVE PROCTITIS 02/22/2010 documented as of this encounter (statuses as of 07/22/2024) Immunizations Name Administration Dates Next Due Seasonal [...] on file documented as of this encounter Plan of Treatment Upcoming Encounters Date Type Department Care Team (Latest Contact Info) Description 01/04/2025 9:30 AM EST Hospital Encounter ENDO [facility], Endoscopy Room [facility] [address] [place] [phone] Salma Roach DO [address] [place] [address] 01/04/2025 9:30 AM EST - 01/04/2025 10:00 AM EST Surgery ENDO [facility], Endoscopy Room [facility] [address] [place] [address] Salma Roach DO [address] [place] [address] COLONOSCOPY FLEXIBLE PROXIMAL DIAGNOSTIC Scheduled Procedures Name Priority Associated Diagnoses Date/Ti wv COLONOSCOPY FLEXIBLE PROXIMAL DIAGNOSTIC Recall Screen for colon cancer 01/04/2025 9:30 AM EST Health Maintenance Due Date Last Done Comments Lipid Panel 1970 Depression Screening 1982 HIV Screening 1985 Hepatitis C Screening 1988 DTaP,Tdap,and Td Vaccines (1 - Tdap) 1989 Hepatitis B Vaccine (1 of 3 - 19+ 3-dose series) 1989 Pap Smear 1991 Cervical Cancer Screening 2000 HPV/Co-Test 2000 Mammogram 2010 Cologuard 2015 Fecal Occult Blood Test 2015 Sigmoidoscopy 2015 Diabetes Screening 12/16/2021 12/16/2018, 1 01/01/2017, 08/07/2016, Additional history exists COVID-19 Vaccine (2022- season) 2023 08/28/2022, 04/23/2022, 10/01/2021, Additional history exists Colonoscopy 03/12/2024 03/12/2021, 03/01, 06/13/2014, Additional history exists Colorectal Cancer Screening 03/12/2024 Zoster Vaccines (2 of 2) 04/19/2024 02/23/2024 Influenza Vaccine (FLU shot) (#1) 2024 08/31/2011 [...] Not on filedocumented as of this encounter Care Teams Field Sales Representative Relationship Specialty Start Date End Date Brayan Kowalski MD PCP - General Internal Medicine 08/16/15 documented as of this encounter
--- OUTSIDE RECORDS SUMMARY | 2024-09-09 13:54 | External Medical Summary ---
Author Name Unknown Address Unknown Organization K01:[facility] - [address] [place] [address] Laboratory Report Ordering Provider Test Date Status PREET ANDERSON 07/28/2024 16:19:01 Final Observation Date Value Abnormality Reference (Units ) Status CRP, low-sensitivity 07/28/2024 16:19:01 4 <=5 (mg/L) Final Performing Location [facility] - [address] [place] [address]
--- OUTSIDE RECORDS SUMMARY | 2024-09-09 13:54 | External Medical Summary | Summary of Care ---
Author Name Unknown Organization [facility] Address [address] [place] [facility] [place] [address] Phone [phone] Care Team Providers Care Price Checker Name Role Phone Brayan Kowalski MD Primary Care Provider [phone] Reason for Visit * Reason Comments Outpatient Testing Encounter Details Date Type Department Care Team (Late st Contact Info) Description 07/28/2024 4:30 PM EDT Laboratory Laboratory, [facility] [address] [place] [phone] [facility] [address] [place] [address] Chronic pancolonic ulcerative colitis (HCC) Allergies Active Allergy Reactions Criticality Noted Date Comments Penicillins Edema face/lips/tongue High 07/04/2009 Sulfa Antibiotics 01/28/2012 Whole body rash Trimethoprim 02/21/2022 documented as of this encounter (statuses as of 07/28/2024) Medications Medication Sig Dispensed Refills Start Date [...] as of this encounter (statuses as of 07/28/2024) Active Problems Problem Noted Date Diagnosed Date ENTERITIS ULCERATIVE PROCTITIS 02/22/2010 documented as of this encounter (statuses as of 07/28/2024) Immunizations Name Administration Dates Next Due Seasonal [...] EST Hospital Encounter ENDO OSS[facility], Endoscopy Room [facility] [address] [place] [phone] Salma Roach DO [address] [place] [address] 01/04/2025 9:30 AM EST - 01/04/2025 10:00 AM EST Surgery ENDO OSS[facility], Endoscopy Room [facility] [address] [place] [id number] Salma Roach DO [address] [place] [address] COLONOSCOPY FLEXIBLE PROXIMAL DIAGNOSTIC Pending Results Name Type Priority Associated Diagnoses Date /Time CBC WITH WBC DIFFERENTIAL Lab Routine Chronic pancolonic ulcerative colitis (HCC) 07/28/2024 4:19 PM EDT CRP (INFLAMMATORY MARKER) Lab Routine Chronic pancolonic ulcerative colitis (HCC) 07/28/2024 4:19 PM EDT CBC Lab Routine Chronic pancolonic ulcerative colitis (HCC) 07/28/2024 4:19 PM EDT DIFFERENTIAL, AUTOMATED Lab Routine Chronic pancolonic ulcerative colitis (HCC) 07/28/2024 4:19 PM EDT Scheduled Procedures Name Priority Associated Diagnoses Date/Ti me COLONOSCOPY FLEXIBLE PROXIMAL DIAGNOSTIC Recall Screen for colon cancer 01/04/2025 9:30 AM EST Health Maintenance Due Date Last Done Comments Lipid Panel 1970 Depression Screening 1982 HIV Screening 1985 Hepatitis C Screening 1988 DTap/Tdap Vaccines (1 - Tdap) 1989 Hepatitis B [...] as of this encounter Visit Diagnoses Diagnosis Chronic pancolonic ulcerative colitis (HCC) Screen for colon cancer Special screening for malignant neoplasms, colon documented in this encounter Care Teams Price Checker Relationship Specialty Start Date End Date Brayan Kowalski MD PCP - General Internal Medicine 08/16/15 documented as of this encounter
--- OUTSIDE RECORDS SUMMARY | 2024-09-09 13:54 | External Medical Summary ---
Author Name Unknown Address Unknown Organization K01:[facility] [place] [facility] [address] [place] [address] Laboratory Report Ordering Provider Test Date Status PREET ANDERSON 07/28/2024 16:19:01 Final Observation Date Value Abnormality Reference (Units ) Status WBC, Total 07/28/2024 16:19:01 10.17 4.00-10.80 (K/uL) Final RBC 07/28/2024 16:19:01 5.28 3.85-5.15 (M/uL) Final Hemoglobin 07/28/2024 16:19:01 14.9 12.0-15.3 (g/dL) Final HCT 07/28/2024 16:19:01 48.2 Above high normal 36.0-45.2 (%) Final MCV 07/28/2024 16:19:01 91.3 81.5-97.5 (fL) Final MCH 07/28/2024 16:19:01 28.2 27.0-34.0 (pg) Final MCHC 07/28/2024 16:19:01 30.9 32.0-36.0 (g/dL) Final RDW 07/28/2024 16:19:01 13.8 11.5-15.5 (%) Final Platelets 07/28/2024 16:19:01 306 140-400 (K/uL) Final MPV 07/28/2024 16:19:01 10.4 6.6-11.1 (fL) Final Nucleated erythrocytes/100 leukocytes [Ratio] in Blood by Automated count 07/28/2024 16:19:01 0 <=0 (/100 WBCs) Final Performing Location [facility] [place] - [address] [place] [address]
--- OUTSIDE RECORDS SUMMARY | 2024-09-09 13:54 | External Medical Summary ---
Author Name Unknown Address Unknown Organization [id number]:[facility] [place] - [address] [place] [address] Laboratory Report Ordering Provider Test Date Status PREET ANDERSON 07/28/2024 16:19:01 Final Observation Date Value Abnormality Reference (Units ) Status BUN 07/28/2024 16:19:01 16 6-20 (mg/dL) Final Creatinine 07/28/2024 16:19:01 0.9 0.5-1.0 (mg/dL) Final Glomerular filtration rate/1.73 sq M.predicted [Volume Rate/Area] in Serum, Plasma or Blood by Creatinine-based formula (CKD-EPI) 07/28/2024 16:19:01 79 >=60 (mL/min) Final eGFR is calculated based on the CKD-EPI 2020 equation. Sodium 07/28/2024 16:19:01 141 135-146 (m mol/L) Final Potassium 07/28/2024 16:19:01 4.6 3.5-5.1 (m mol/L) Final Cl 07/28/2024 16:19:01 105 98-107 (mm ol/L) Final CO2 07/28/2024 16:19:01 24 22-32 (mmo l/L) Final Anion gap 07/28/2024 16:19:01 12 7-15 (mmol /L) Final Glucose 07/28/2024 16:19:01 92 70-120 (mg /dL) Final Albumin 07/28/2024 16:19:01 4.5 3.8-5.0 (g /dL) Final AST (Aspartate aminotransferase) 07/28/2024 16:19:01 13 10-35 (U/L) Final Alk Phos 07/28/2024 16:19:01 120 35-130 (U/ L) Final Bilirubin, Total 07/28/2024 16:19:01 0.6 <=1 .2 (mg/dL) Final Calcium 07/28/2024 16:19:01 9.9 8.4-10.2 ( mg/dL) Final Protein 07/28/2024 16:19:01 6.9 6.0-8.3 (g /dL) Final ALT (Alanine aminotransferase) 07/28/2024 16:19:01 17 10-35 (U/L) Final Performing Location [facility] [place] - [address] [facility] [address]
--- OUTSIDE RECORDS SUMMARY | 2024-09-09 13:54 | External Medical Summary | Summary of Care ---
Author Name Unknown Organization [facility] Address [address] [place] [address] Phone [phone] Care Team Providers Care Track Watchman Name Role Phone Brayan Kowalski MD Primary Care Provider [phone] Reason for Visit * Reason Comments Follow Up Encounter Details Date Type Department Care Team (Late st Contact Info) Description 07/20/2024 9:00 AM EDT Telemedicine Gastroenterology, [facility] [address] [place] [address] Pura Wick CRNP [address] [place] [address] Chronic pancolonic ulcerative colitis (HCC)* Allergies Active Allergy Reactions Criticality Noted Date Comments Penicillins Edema face/lips/tongue High 07/04/2009 Sulfa Antibiotics 01/28/2012 Whole body rash Trimethoprim 02/21/2022 documented as of this encounter (statuses as of 07/20/2024) Medications Medication Sig Dispensed Refills Start Date [...] as of this encounter (statuses as of 07/20/2024) Active Problems Problem Noted Date Diagnosed Date ENTERITIS ULCERATIVE PROCTITIS 02/22/2010 documented as of this encounter (statuses as of 07/20/2024) Immunizations Name Administration Dates Next Due Seasonal [...] on file documented as of this encounter Progress Notes * Pura Wick CRNP - 07/20/2024 5:16 AM EDT Telemedicine Visit 07/20/2024: REFERRING PHYSICIAN: Self Patient location: HOME. I was in a hospital or clinic location. After connecting through televideo,patient was verified with two unique identifiers. Patient (or authorized legal manufacturers representative) was then informed that this was a Telemedicine visit and being conducted confidentially over secure lines. Methods to assure confidentiality were taken. Patient acknowledged consent and understanding of pr ivacy and security of the Telemedicine visit. The patient agreed to participate. CC: Ulcerative proctitis recheck HPI: Recall that Ms. Susanna Urban is a 54 yr old female pt of Dr. 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 IBD Hx: Dx'ed: during 17 yrs ago, 2006, age 36. Initially tx w rectal suppositories, tx to [facility] in 2007 and tx Initially tx by Dr. Apple who documented only rectal involvement. Transferred care to [facility] in 2009, see Dr. Hernandez visit. Initial colonoscopy in the [facility] in 2010 - Mild inflammation was found in the distal rectum on colonoscopy in 2010. Path throughout the cecum and colon w mild chronic inflammation, no acute activity, no granulomata, or dysplasia. Most recent colonoscopy March 2021: sigmoid diverticulosis, otherwise normal. Current GI Meds: Apriso 0.375 4 tabs each morning. Current GI Symptoms: None, 3 formed BM daily, on blood, no pain, weight is stable. Diagnostic Testing: Past Medical History: Diagnosis Date Anxiety Benign neoplasm of colon 02/26/11 bx--inflammation present --no dysplasia --repeat in 3 yrs Depression History of migraine headaches Hypertension Ulcerative colitis (HCC) Ulcerative proctitis (HCC) 2005 Family History Problem Relation Name Age of Onset Cancer Mother breast Osteoporosis Mother Heart Disorder Father history of heart problems Other (history of CABG) Father Alzheimer's disease Grandmother (Maternal) Other (myocardial infarction) Other Other (prostates cancer ) Other Past Surgical History: Procedure Laterality Date COLONOSCOPY 2006 COLONOSCOPY W/ BIOPSY (RECTUM) 02/26/2011 bx--inflammation present --no dysplasia --repeat in 3 yrs COLONOSCOPY, DIAGNOSTIC (RECTUM) 06/13/2014 normal/COLONOSCOPY FLEXIBLE PROXIMAL DIAGNOSTIC performed by Micheline Herrera DO at ENDOSCOPY [facility] COLONOSCOPY, DIAGNOSTIC (RECTUM) 03/12/2021 normal, repeat 10 yrs / COLONOSCOPY FLEXIBLE PROXIMAL DIAGNOSTIC performed by Micheline Herrera DO at[facility]COPY [facility] REMOVE GALLBLADDER Social History Tobacco Use Smoking status: Never Smokeless tobacco: Never Vaping Use Vaping status: Never Used Substance Use Topics Alcohol use: Yes Comment: social Drug use: No Review of patient's allergies indicates: Allergen Reactions Pcn [Penicillins] Edema face/lips/tongue Sulfa Antibiotics Whole body rash Trimethoprim Current Outpatient Medications Medication Sig Dispense Refill amLODIPine Besylate 5 MG Oral Tablet (Norvasc) (Patient not taking: Reported on 10/14/2023) Escitalopram Oxalate 20 MG Oral Tablet (Lexapro) Multivitamin Adult Oral Tablet Take by mouth. Mesalamine ER 0.375 GM Oral Capsule Extended Release 24 Hour (Apriso) Take 4 Capsules by mouth in the morning. 360 Capsule 1 No current facility-administered medications for this visit. REVIEW OF SYSTEMS: A total of 12 systems were reviewed. All other findings negative except as noted in HPI. EXAM: GENERAL: Appears stated age, well developed, well nourished in no acute distress. SKIN: No apparent rashes, jaundice, ecchymosis, oral lesions. HEENT: Neck supple. Normocephalic, sclera non-icteric LUNGS: No respiratory distress or apparent accessory muscles used. Normal chest excursion. No audible wheezing NEURO: No lateralizing findings. Cranial nerves IV, V, , VII, XI and XII in tact. Motor grossly normal. PSYCHOSOCIAL: Appropriate affect, normal memory recall, ASSESSMENT AND PLAN: Chronic pancolonic ulcerative colitis (HCC) (Primary) - in symptomatic remission. (Previously documented as ulcerative proctitis but there was cecal involvement in 2010 - more accurately, this represents ye UC, though mild dx course). - CBC WITH WBC DIFFERENTIAL; Future; Expected date: 07/20/2024 - COMPREHENSIVE METABOLIC PANEL - CRP (INFLAMMATORY MARKER); Future; Expected date: 07/20/2024 - COLONOSCOPY, DIAGNOSTIC (RECTUM) - screening for colon cancer. I spent a total of 15 minutes on the date of service in review of patient's record, and previously obtained information in person and appropriate medical visit, discussion and education of plan, withpatient and/or caregiver, placing orders for tests/referral/procedures as medically necessary and documentation of pertinent clinical information in patient's medical records for their visit today. RETURN TO CLINIC: Recheck in GI yearly and as needed. - ED for emergencies - Please call with any questions or concerns ALEX Jewell 07/20/2024 9:28 AM R: 07/20/2024 documented in this encounter Plan of Treatment Scheduled Orders Name Type Priority Associated Diagnoses Orde r Schedule CBC WITH WBC DIFFERENTIAL Lab Routine Chronic pancolonic ulcerative colitis (HCC) Expected: 07/20/2024, Expires: 07/20/2025 COMPREHENSIVE METABOLIC PANEL Lab Routine Chronic pancolonic ulcerative colitis (HCC) Ordered: 07/20/2024 CRP (INFLAMMATORY MARKER) Lab Routine Chronic pancolonic ulcerative colitis (HCC) Expected: 07/20/2024, Expires: 07/20/2025 COLONOSCOPY, DIAGNOSTIC (RECTUM) Procedures Routine Chronic pancolonic ulcerative colitis (HCC) Ordered: 07/20/2024 Scheduled Procedures Name Priority Associated Diagnoses Date/Ti [...] 2015 Zoster Vaccines (1 of 2) 2020 02/23/2024 Diabetes Screening 12/16/2021 12/16/2018, 1 01/01/2017, 08/07/2016, [...] Visit Diagnoses Diagnosis Chronic pancolonic ulcerative colitis (HCC)- Primary documented in this encounter Care Teams Track Watchman Relationship Specialty Start Date End Date Brayan Kowalski MD PCP - General Internal Medicine 08/16/15 documented as of this encounter
--- OUTSIDE RECORDS SUMMARY | 2024-09-09 13:55 | External Medical Summary | Summary of Care ---
Author Name Unknown Organization [facility] Address [address] [place] [address] Phone [phone] Care Team Providers Care Executive Vice President Name Role Phone Brayan Kowalski MD Primary Care Provider [phone] Reason for Visit * Reason Onset Date Comments Medication Refill 06/18/2024 Encounter Details Date Type Department Care Team (Late st Contact Info) Description 06/18/2024 Refill Gastroenterology, [facility] [address] [place] [address] Micheline Herrera, DO [address] [place] [address] Ulcerative proctitis without complication (HCC) Allergies Active Allergy Reactions Criticality Noted Date Comments Penicillins Edema face/lips/tongue High 07/04/2009 Sulfa Antibiotics 01/28/2012 Whole body rash Trimethoprim 02/21/2022 documented as of this encounter (statuses as of 06/18/2024) Medications Medication Sig Dispensed Refills Start Date [...] in the morning. 360 Capsule 3 08/05/2023 Discontinue d(Refill) documented as of this encounter (statuses as of 06/18/2024) Active Problems Problem Noted Date Diagnosed Date ENTERITIS ULCERATIVE PROCTITIS 02/22/2010 documented as of this encounter (statuses as of 06/18/2024) Immunizations Name Administration Dates Next Due Seasonal [...] encounter Miscellaneous Notes * Telephone Encounter - Yin Kelley CMA - 06/18/2024 2:55 PM EDT Pt notified RX sent to [facility] and she will call back to schedule [...] pharmacy and medication before forwarding?yes Pharmacy: [facility] [place] Pending Prescriptions: Disp Refills Mesalamine ER 0.375 GM Oral Capsule Exten*120 Ca*1 Sig: Take 4 Capsules by mouth in the morning. Last Visit: 10/14/2023 (in office), 02/21/2022 (telemedicine) Patient Phone Numbers Labs: Lab Results Component Value Date/Time CREAT 0.8 12/16/2018 11:04 AM POTASSIUM 4.2 12/16/2018 11:04 AM TSH 1.16 12/16/2018 11:04 AM * Telephone Encounter - Michelle Bonilla [facility] - 06/18/2024 1:57 PM EDTPending Prescriptions: Disp Refills Mesalamine ER 0.375 GM Oral Capsule Extend*120 Ca*1 Sig: Take 4 Capsules by mouth in the morning. * Telephone Encounter - Hui Pate CPhT - 06/18/2024 1:38 PM EDT Pt is currently visiting [place], and had last refill of medication transferred to a local pharmacy. She was requesting that the refill be sent back to [facility] pharmacy. Pt would like to picket labor union med on Friday06/21/2024 Please reroute Rx to [facility] [place]. Pending Prescriptions: Disp Refills [...] in this encounter Plan of Treatment Scheduled Procedures Name Priority Associated Diagnoses Date/Ti [...] (HCC) documented in this encounter Care Teams Executive Vice President Relationship Specialty Start Date End Date Brayan Kowalski MD PCP - General Internal Medicine 08/16/15 documented as of this encounter
--- OUTSIDE RECORDS SUMMARY | 2024-09-09 13:55 | External Medical Summary | Summary of Care ---
Author Name Unknown Organization [facility] Address [address] [place] [address] Phone [phone] Care Team Providers Care Earth Observations Chief Scientist Name Role Phone Brayan Kowalski MD Primary Care Provider [phone] Reason for Visit * Reason Onset Date Comments Medication Refill 06/18/2024 Medication Question 06/21/2024 Encounter Details Date Type Department Care Team (Late st Contact Info) Description 06/18/2024 Refill Gastroenterology, [facility] [address] [place] [address] Micheline Herrera, DO [address] [place] [address] Ulcerative proctitis without complication (HCC) Allergies Active [...] encounter Miscellaneous Notes * Telephone Encounter - Salma Mallory, payment manager - 06/22/2024 10:20 AM EDT pt calling to check on status of mesalamine. Caller can be reached at [phone]. Please send 90 day supply TEVIN she has been out for days. Pt requested to be transferred to the office. Thank you, Salma Mallory [place] Edger I [facility] ([facility] (formerly [facility]pharm[facility]) 06/22/2024,10:20 AM * Telephone Encounter - Pura Wick CRNP - 06/21/2024 6:15 PM EDT Not sure why this was sent to me. Appears that it was signed by Loree on 06/18 at 2:19 PM. * Telephone Encounter - Salma Mallory payment manager - 06/21/2024 4:19 PM EDT pt calling to check on status of mesalamine. Caller can be reached at [phone]. Please send TEVIN as pt is out and is upset that she has not been abole to get her 90 day supply. Thank you, Salma Mallory [place] [employer] [facility] ([facility] ([facility]pharm[facility]) 06/21/2024,4:19 PM * Telephone Encounter - Diane Morgan OSA - 06/21/2024 12:53 PM EDT Pt has appt 07/10/24 with Pura Wick * Telephone Encounter - Lucy Suazo CPhT - 06/21/2024 11:10 AM EDT Pt called to request a 90 day supply for Mesalamine ER 0.375 mg. If agreeable please send to [facility] [place]. Pt stated the 60 day supply will cost $400.00 and is requesting a 90 day supply. Transferred to scheduling dept for appt. Thank you, Bethanie Suazo Registered Respiratory Therapist III [facility]) 06/21/2024,11:10 AM * Telephone Encounter - Yin Kelley CMA - 06/18/2024 2:55 PM EDT Pt notified RX sent to [facility] and she will call back to schedule [...] pharmacy and medication before forwarding?yes Pharmacy: [facility] [place] Pending Prescriptions: Disp Refills [...] 1:38 PM EDT Pt is currently visiting [place], and had last refill of medication transferred to a local pharmacy. She was requesting that the refill be sent back to [facility] pharmacy. Pt would like to package pick up med on Friday06/21/2024 Please reroute Rx to [facility] [place]. Pending Prescriptions: Disp Refills [...] Description 07/20/2024 9:00 AM EDT Telemedicine Gastroenterology, [facility] [address] [place] [address] Pura Wick CRNP [address] [place] [address] Scheduled Procedures Name Priority Associated Diagnoses Date/Ti [...] (HCC) documented in this encounter Care Teams Earth Observations Chief Scientist Relationship Specialty Start Date End Date Brayan Kowalski MD PCP - General Internal Medicine 08/16/15 documented as of this encounter
--- OUTSIDE RECORDS SUMMARY | 2024-09-09 13:55 | External Medical Summary | Summary of Care ---
Author Name Unknown Organization [facility] Address [address] [place] [address] Phone [phone] Care Team Providers Care Black Ash Burner Operator Name Role Phone Brayan Kowalski MD Primary Care Provider [phone] Reason for Visit * Reason Onset Date Comments Medication Refill 06/18/2024 Medication Question 06/21/2024 Encounter Details Date Type Department Care Team (Late st Contact Info) Description 06/18/2024 Refill Gastroenterology, [facility] [address] [place] [address] Micheline Herrera, DO [address] [place] [address] Ulcerative proctitis without complication (HCC) Allergies Active Allergy Reactions Criticality Noted Date Comments Penicillins Edema face/lips/tongue High 07/04/2009 Sulfa Antibiotics 01/28/2012 Whole body rash Trimethoprim 02/21/2022 documented as of this encounter (statuses as of 06/21/2024) Medications Medication Sig Dispensed Refills Start Date [...] as of this encounter (statuses as of 06/21/2024) Active Problems Problem Noted Date Diagnosed Date ENTERITIS ULCERATIVE PROCTITIS 02/22/2010 documented as of this encounter (statuses as of 06/21/2024) Immunizations Name Administration Dates Next Due Seasonal [...] encounter Miscellaneous Notes * Telephone Encounter - Lucy Suazo CPhT - 06/21/2024 11:10 AM EDT Pt called to request a 90 day supply for Mesalamine ER 0.375 mg. If agreeable please send to [facility] [place]. Pt stated the 60 day supply will cost $400.00 and is requesting a 90 day supply. Transferred to scheduling dept for appt. Thank you, Bethanie Suazo Regulatory Lead III [facility] ([facility]) 06/21/2024,11:10 AM * Telephone Encounter - Yin Kelley CMA - 06/18/2024 2:55 PM EDT Pt notified RX sent to [facility] and she will call back to [...] preferred pharmacy and medication before forwarding?yes Pharmacy: [facility] [place] Pending Prescriptions: Disp Refills Mesalamine ER 0.375 GM Oral Capsule Exten*120 Ca*1 Sig: Take 4 Capsules by mouth in the morning. Last Visit: 10/14/2023 (in office), 02/21/2022 (telemedicine) Patient Phone Numbers Labs: Lab Results Component Value Date/Time CREAT 0.8 12/16/2018 11:04 AM POTASSIUM 4.2 12/16/2018 11:04 AM TSH 1.16 12/16/2018 11:04 AM * Telephone Encounter - Michelle Bonilla [facility] - 06/18/2024 1:57 PM EDTPending Prescriptions: Disp Refills Mesalamine ER 0.375 GM Oral Capsule Extend*120 Ca*1 Sig: Take 4 Capsules by mouth in the morning. * Telephone Encounter - Hui Pate CPhT - 06/18/2024 1:38 PM EDT Pt is currently visiting [place], and had last refill of medication transferred to a local pharmacy. She was requesting that the refill be sent back to [facility] pharmacy. Pt would like to supervisor opening and picking med on Friday06/21/2024 Please reroute Rx to [facility] [place]. Pending Prescriptions: Disp [...] (HCC) documented in this encounter Care Teams Black Ash Burner Operator Relationship Specialty Start Date End Date Brayan Kowalski MD PCP - General Internal Medicine 08/16/15 documented as of this encounter
--- OUTSIDE RECORDS SUMMARY | 2024-09-09 13:55 | External Medical Summary | Summary of Care ---
Author Name Unknown Organization [facility] Address [address] [place] [address] Phone [phone] Care Team Providers Care Drafter Automotive Design Layout Name Role Phone Brayan Kowalski MD Primary Care Provider [phone] Reason for Visit * Reason Onset Date Comments Medication Refill 06/18/2024 Medication Question 06/21/2024 Encounter Details Date Type Department Care Team (Late st Contact Info) Description 06/18/2024 Refill Gastroenterology, [facility] [address] [place] [address] Micheline Herrera, DO [address] [place] [address] Ulcerative proctitis without complication (HCC) Allergies Active [...] Notes * Telephone Encounter - Salma Mallory, fringe maker - 06/21/2024 4:19 PM EDT pt calling to check on status of mesalamine. Caller can be reached at [phone]. Please send TEVIN as pt is out and is upset that she has not been abole to get her 90 day supply. Thank you, Salma Mallory Instrument Specialist I [facility] ([facility]) (formerly Telepharmacy) 06/21/2024,4:19 PM * Telephone Encounter - Diane Morgan OSA - 06/21/2024 12:53 PM EDT Pt has appt 07/10/24 with Pura Delano * Telephone Encounter - Lucy Suazo CPhT - 06/21/2024 11:10 AM EDT Pt called to request a 90 day supply for Mesalamine ER 0.375 mg. If agreeable please send to [facility]- [place]. Pt stated the 60 day supply will cost $400.00 and is requesting a 90 day supply. Transferred to scheduling dept for appt. Thank you, Bethanie Suazo Bariatric Surgeon III [facility] ([facility]) 06/21/2024,11:10 AM * Telephone Encounter - Yin Kelley CMA - 06/18/2024 2:55 PM EDT Pt notified RX sent to [facility] and she will call back [...] pharmacy and medication before forwarding?yes Pharmacy: [facility]-[address]- [place] Pending Prescriptions: Disp Refills Mesalamine ER 0.375 GM Oral Capsule Exten*120 Ca*1 Sig: Take 4 Capsules by mouth in the morning. Last Visit: 10/14/2023 (in office), 02/21/2022 (telemedicine) Patient Phone Numbers mobile [phone] Labs: Lab Results Component Value Date/Time CREAT 0.8 12/16/2018 11:04 AM POTASSIUM 4.2 12/16/2018 11:04 AM TSH 1.16 12/16/2018 11:04 AM * Telephone Encounter - Michelle Bonilla [facility] - 06/18/2024 1:57 PM EDTPending Prescriptions: Disp Refills Mesalamine ER 0.375 GM Oral Capsule Extend*120 Ca*1 Sig: Take 4 Capsules by mouth in the morning. * Telephone Encounter - Hui Pate CPhT - 06/18/2024 1:38 PM EDT Pt is currently visiting [place], and had last refill of medication transferred to a local pharmacy. She was requesting that the refill be sent back to [facility] pharmacy. Pt would like to brass pickler med on Friday06/21/2024 Please reroute Rx to [facility]-[address]- [place]. Pending Prescriptions: Disp Refills [...] Description 07/20/2024 9:00 AM EDT Telemedicine Gastroenterology, [address] [place] [address] Pura Wick CRNP [address] [place] [address] Scheduled Procedures Name Priority Associated Diagnoses Date/Ti [...] (HCC) documented in this encounter Care Teams Drafter Automotive Design Layout Relationship Specialty Start Date End Date Brayan Kowalski MD PCP - General Internal Medicine 08/16/15 documented as of this encounter
--- OUTSIDE RECORDS SUMMARY | 2024-09-09 13:55 | External Medical Summary | Summary of Care ---
Author Name Unknown Organization [facility] Address [address] [place] [address] Phone [phone] Care Team Providers Care Drill Press Set Up Operator Radial Name Role Phone Brayan Kowalski MD Primary Care Provider [phone] Reason for Visit * Reason Onset Date Comments Medication Refill 06/18/2024 Medication Question 06/21/2024 Encounter Details Date Type Department Care Team (Late st Contact Info) Description 06/18/2024 Refill Gastroenterology, [facility] [address] [place] [address] Micheline Herrera, DO [address] [place] [address] Ulcerative proctitis without complication (HCC) Allergies Active [...] encounter Miscellaneous Notes * Telephone Encounter - Pura Wick CRNP - 06/21/2024 6:15 PM EDT Not sure why this was sent to me. Appears that it was signed by Loree on 06/18 at 2:19 PM. * Telephone Encounter - Salma Mallory, design director - 06/21/2024 4:19 PM EDT pt calling to check on status of mesalamine. Caller can be reached at [phone]. Please send TEVIN as pt is out and is upset that she has not been abole to get her 90 day supply. Thank you, Salma Mallory Ncqa Specialist I [facility] ([facility]) (formerly Telepharmacy) 06/21/2024,4:19 PM * Telephone Encounter - Diane Morgan OSA - 06/21/2024 12:53 PM EDT Pt has appt 07/10/24 with Pura Wick * Telephone Encounter - Lucy Suazo CPhT - 06/21/2024 11:10 AM EDT Pt called to request a 90 day supply for Mesalamine ER 0.375 mg. If agreeable please send to [facility]-[address]- [place]. Pt stated the 60 day supply will cost $400.00 and is requesting a 90 day supply. Transferred to scheduling dept for appt. Thank you, Bethanie Suazo Palaeontologist III [facility] ([facility]) 06/21/2024,11:10 AM * Telephone Encounter - Yin Kelley CMA - 06/18/2024 2:55 PM EDT Pt notified RX sent to [facility] and she will call back to schedule [...] pharmacy and medication before forwarding?yes Pharmacy: [facility]-[address]- [place] Pending Prescriptions: Disp Refills Mesalamine ER 0.375 [...] 1:38 PM EDT Pt is currently visiting [place], and had last refill of medication transferred to a local pharmacy. She was requesting that the refill be sent back to [facility] pharmacy. Pt would like to cotton picker med on Friday06/21/2024 Please reroute Rx to [facility]-[address]- [place]. Pending Prescriptions: Disp Refills [...] Description 07/20/2024 9:00 AM EDT Telemedicine Gastroenterology, [facility] [address] [place] [address] Pura Wick CRNP [address] [place] [address] Scheduled Procedures Name Priority Associated Diagnoses Date/Ti [...] (HCC) documented in this encounter Care Teams Drill Press Set Up Operator Radial Relationship Specialty Start Date End Date Brayan Kowalski MD PCP - General Internal Medicine 08/16/15 documented as of this encounter
--- OUTSIDE RECORDS SUMMARY | 2024-09-09 13:55 | External Medical Summary | Summary of Care ---
Author Name Unknown Organization [facility] Address [address] [place] [address] Phone [phone] Care Team Providers Care Mica Laminating Machine Feeder Name Role Phone Brayan Kowalski MD Primary Care Provider [phone] Reason for Visit * Reason Onset Date Comments Medication Refill 06/18/2024 Encounter Details Date Type Department Care Team (Late st Contact Info) Description 06/18/2024 Refill Gastroenterology, [facility] [address] [place] [address] Micheline Herrera, DO [address] [place] [address] Ulcerative proctitis without complication (HCC) Allergies Active [...] encounter Miscellaneous Notes * Telephone Encounter - Loree Rodriguez CRNP [...] pharmacy and medication before forwarding?yes Pharmacy: [facility]-[address]- [place] Pending Prescriptions: Disp Refills Mesalamine ER 0.375 GM Oral Capsule Exten*120 Ca*1 Sig: Take 4 Capsules by mouth in the morning. Last Visit: 10/14/2023 (in office), 02/21/2022 (telemedicine) Patient Phone Numbers Labs: Lab Results Component Value Date/Time CREAT 0.8 12/16/2018 11:04 AM POTASSIUM 4.2 12/16/2018 11:04 AM TSH 1.16 12/16/2018 11:04 AM * Telephone Encounter - Michelle Bonilla [facility] - 06/18/2024 1:57 PM EDTPending Prescriptions: Disp Refills Mesalamine ER 0.375 GM Oral Capsule Extend*120 Ca*1 Sig: Take 4 Capsules by mouth in the morning. * Telephone Encounter - Hiu Pate CPhT - 06/18/2024 1:38 PM EDT Pt is currently visiting [place], and had last refill of medication transferred to a local pharmacy. She was requesting that the refill be sent back to [facility] pharmacy. Pt would like to picket labor union med on Friday06/21/2024 Please reroute Rx to [facility]-[address]- [place]. Pending Prescriptions: Disp Refills [...] (HCC) documented in this encounter Care Teams Mica Laminating Machine Feeder Relationship Specialty Start Date End Date Brayan Kowalski MD PCP - General Internal Medicine 08/16/15 documented as of this encounter
--- OUTSIDE RECORDS SUMMARY | 2024-09-09 13:55 | External Medical Summary | Summary of Care ---
Author Name Unknown Organization [facility] Address [address] [place] [address] Phone [phone] Care Team Providers Care Rn Labor And Delivery Name Role Phone Brayan Kowalski MD Primary Care Provider [phone] Reason for Visit * Reason Onset Date Comments Medication Refill 06/18/2024 Medication Question 06/21/2024 Encounter Details Date Type Department Care Team (Late st Contact Info) Description 06/18/2024 Refill Gastroenterology, [facility] [address] [place] [address] Micheline Herrera, DO [address] [place] [address] Ulcerative proctitis without complication (HCC) Allergies Active [...] encounter Miscellaneous Notes * Telephone Encounter - Diane Morgan OSA - 06/21/2024 12:53 PM EDT Pt has appt 07/10/24 with Pura Wick * Telephone Encounter - Lucy Suazo CPhT - 06/21/2024 11:10 AM EDT Pt called to request a 90 day supply for Mesalamine ER 0.375 mg. If agreeable please send to [facility]-[address]- [place]. Pt stated the 60 day supply will cost $400.00 and is requesting a 90 day supply. Transferred to scheduling dept for appt. Thank you, Bethanie Suazo Paint Roller Assembler III [facility] ([facility]) 06/21/2024,11:10 AM * Telephone Encounter - Yin Kelley CMA - 06/18/2024 2:55 PM EDT Pt notified RX sent to [facility] and she will call back [...] pharmacy and medication before forwarding?yes Pharmacy: [facility]-[address]- [place] Pending Prescriptions: Disp Refills Mesalamine ER 0.375 GM Oral Capsule Exten*120 Ca*1 Sig: Take 4 Capsules by mouth in the morning. Last Visit: 10/14/2023 (in office), 02/21/2022 (telemedicine) Patient Phone Numbers Labs: Lab Results Component Value Date/Time CREAT 0.8 12/16/2018 11:04 AM POTASSIUM 4.2 12/16/2018 11:04 AM TSH 1.16 12/16/2018 11:04 AM * Telephone Encounter - Michelle Bonilla [facility] - 06/18/2024 1:57 PM EDTPending Prescriptions: Disp Refills Mesalamine ER 0.375 GM Oral Capsule Extend*120 Ca*1 Sig: Take 4 Capsules by mouth in the morning. * Telephone Encounter - Hui Pate CPhT - 06/18/2024 1:38 PM EDT Pt is currently visiting [place], and had last refill of medication transferred to a local pharmacy. She was requesting that the refill be sent back to [facility] pharmacy. Pt would like to picked edge sewing machine operator med on Friday06/21/2024 Please reroute Rx to [facility]-[address]- [place]. Pending Prescriptions: Disp Refills [...] Description 07/20/2024 9:00 AM EDT Telemedicine Gastroenterology, [facility] [address] [place] [address] Pura Wick CRNP [address] [place] [address] Scheduled Procedures Name Priority Associated Diagnoses Date/Ti [...] (HCC) documented in this encounter Care Teams Rn Labor And Delivery Relationship Specialty Start Date End Date Brayan Kowalski MD PCP - General Internal Medicine 08/16/15 documented as of this encounter
[2024-09-09] MEDS: cefTRIAXone SODIUM 2,000 MG/50 ML BAG IV STA (15:35)
--- NOTE | 2024-09-09 15:36 | Billing Data ---
Date of Service September 09, 2024 Coding Level of Care Code 98237 INT INP/OBS CARE
[2024-09-09] MEDS: CEFEPIME 2000MG 2,000 MG/20 ML SYR IV STA (15:56)
[2024-09-09] MEDS ORDERED: HYDROmorphone INJ 0.5 MG/0.5 ML SYR IV PRN (20:38)
[2024-09-09] MEDS ORDERED: ONDANSETRON INJ 2 MG/ML 2 ML VIAL IV PRN (20:38)
[2024-09-09] MEDS ORDERED: ESCITALOPRAM OXALATE 20 MG TAB PO SCH (20:38)
[2024-09-09] MEDS ORDERED: ACETAMINOPHEN 1,000 MG/100 ML VIAL IV PRN (20:38)
[2024-09-09] MEDS ORDERED: HYDROmorphone INJ 1 MG/ML SYRINGE IV PRN (20:38)
[2024-09-09] MEDS: TAMSULOSIN HCL 0.4 MG CAP PO SCH (21:57)
--- NOTE | 2024-09-10 08:03 | Hospitalist Progress Note ---
Date of Service September 10, 2024 Assessment & Plan (1) Calculus of proximal left ureter: Plan: Presented with acute onset of LLQ pain that began on the evening of 09/08 - Mild leukocytosis at 14.87 with a neutrophil predominance, afebrile on admission - CT A/P on arrival revealed an 8 mm proximal left ureteral calculus > One prior incidence of kidney stones - Given leukocytosis and imaging showing perinephric stranding, will cover with Cefepime 2000 mg IV x 1 > Discussed patient's PCN allergy at bedside; no history of anaphylaxis or throat closure with PCN, but she does report "tongue swelling" > Discussed case with pharmacy. Patient has tolerated Cefepime x 6 doses in January 2022 - Urology consult appreciated > Patient with prior episode of nephrolithiasis with poor tolerance of stents > Her obstructing stone is large and of she may have trouble passing it spontaneously and would require intervention, however patient wanted to hold off on 09/09 > May reconsider stent placement 09/10 - Urine strainer ordered - Pain control with IV acetaminophen and morphine as needed - IV antiemetics with Zofran as needed - Tamsulosin HS (2) Hydronephrosis: Plan: Treatment (as above) (3) Ulcerative colitis: Plan: Discussed with pharmacy, we do not have extended release mesalamine on formulary Patient's reports he can bring in from home Continue mesalamine; okay to take prescription on arrival (4) Severe obstructive sleep apnea: Plan: CPAP HS (5) Anxiety: Plan: Continue escitalopram Plan NPO pending surgical eval, then can have regular diet VTE PPx: SCDs CODE STATUS: Full code Admission and Anticipated Discharge Date Admission Date: September 09, 2024 Physical Exam Physical Exam: General: no acute distress; pleasant affect; at bedside; non-toxic appearing; well-nourished; cooperative HEENT: normocephalic, atraumatic; no scleral icterus; PERRLA; vision and hearing grossly intact Neck: supple; no lymphadenopathy; trachea midline Skin: warm, dry without signs of tenting; no cyanosis; no rashes, bruising, lesions, or erythema noted CV: chest wall NTP; RRR; S1/S2 normal; no murmurs/rubs/gallops; pulses intact and symmetric at radial, DP, and PT Lungs: no acute respiratory distress; symmetrical chest wall expansion; clear breath sounds across all lung scales w/o adventitious sounds; no wheezing ABD: Soft, NTP in all 4 quadrants; BS present; no rebound/guarding; no distention Back: Mild left-sided CVA tenderness; no signs of bruising on the abdomen/flank/back MSK: no tics or fasciculations; no edema noted in the LEs b/l, nonerythematous Neuro: A&Ox3; normal mood and affect; fluent speech; no focal deficits; sensation grossly intact in the LEs b/l Results & Data Results & Data Vital Signs (Past 12 Hours) Vital Signs Temp Pulse Pulse Resp BP BP Pulse Ox 09/10/24 07:06 86 09/10/24 03:50 98.1 F 79 18 132/80 96 09/09/24 23:42 98.2 F 80 18 127/75 96 09/09/24 22:50 86 09/09/24 21:54 87 09/09/24 20:39 97.7 F 86 18 143/78 H 95 O2 Del Method O2 Flow Rate 09/10/24 07:06 09/10/24 03:50 Nasal Cannula 2 09/09/24 23:42 Nasal Cannula 2 09/09/24 22:50 09/09/24 21:54 09/09/24 20:39 Room Air Laboratory Results Reviewed CBC Reviewed BMP PG Care Time/CCT Total # of Minutes Spent Total Time Spent with Patient: Total time spent is greater than 50% in coordination of care (as documented) at patient's floor/unit and/or counseling patient: Coding Diagnoses Calculus of proximal left ureter N20.1 Hydronephrosis N13.30 Ulcerative colitis K51.90 Severe obstructive sleep apnea G47.33 Anxiety F41.9
[2024-09-10 08:07] LABS: Basophils # (auto) 0.03 K/uL (0.00-0.20); Basophils % (auto) 0.3 %; Eosinophils # (auto) 0.08 K/uL (0.00-0.50); Eosinophils % (auto) 0.9 %; Hemoglobin 13.6 g/dl (12.0-16.0); Immature Granulocytes # (auto) 0.03 K/uL (0.01-0.20); Immature Granulocytes % (auto) 0.3 %; Lymphocytes # (auto) 2.18 K/uL (1.20-3.40); Lymphocytes % (auto) 24.1 %; Mean Corpuscular Hemoglobin 27.7 pg (25.0-34.0); Mean Corpuscular Hgb Conc 31.6 g/dL (32.0-36.0); Mean Corpuscular Volume 87.6 fL (80.0-100.0); Mean Platelet Volume 10.2 fL (9.4-12.4); Monocytes # (auto) 0.64 K/uL (0.11-0.59); Monocytes % (auto) 7.1 %; Neutrophils # (auto) 6.07 K/uL (1.40-6.50); Neutrophils % (auto) 67.3 %; Platelet Count 248 K/uL (130-400); RDW Coefficient of Variation 13.6 % (11.5-14.5); Red Blood Count 4.91 M/uL (4.20-5.40); White Blood Count 9.03 K/ul (4.8-10.8)
[2024-09-10 08:28] LABS: BUN Creatinine Ratio 16.7 (10-20); Creatinine Clr Calc Pharmacy 57.5 ml/min; Potassium 3.9 mmol/L (3.5-5.1)
--- NOTE | 2024-09-10 08:38 | Urology Progress Note ---
Date of Service September 10, 2024 Assessment & Plan (1) Calculus of proximal left ureter: (2) Hydronephrosis: Plan 54 yo/F admitted with left flank pain, nausea and vomiting secondary to an obstructing 8 mm left proximal ureteral stone. She is afebrile, hemodynamically stable Labs reviewedcreatinine 1.08, WBC 9.03, hemoglobin 13.6 Subjectively doing well, no flank pain or nausea/vomiting overnight or this morning Reviewed options for stone management including ureteral stent while inpatient versus outpatient management with ESWL or ureteroscopy, laser lithotripsy and stent placement If she continues to feel well this morning, she is leaning towards outpatient management Okay to discharge when medically stable Will check KUB prior to discharge to check stone visibility/candidacy for ESWL Continue supportive care, pain management and symptom management per [facility] edicine service Will arrange outpatient follow-up with our service to discuss definitive stone management will sign off, recall as needed Admission and Anticipated Discharge Date Admission Date: September 09, 2024 Subjective Patient seen and examined at bedside this morning. She is awake and resting in bed. Reports feeling well this morning. Reports no flank pain overnight or this morning. She did not require any pain medication since ED. Nausea and vomiting resolved. Voiding without difficulty. No dysuria or hematuria. Review of Systems Constitutional: as per Subjective / HPI Genitourinary: as per Subjective / HPI Physical Exam Constitutional: well developed and well nourished; no acute distress Respiratory: normal respiratory effort; no respiratory distress and no labored breathing Gastrointestinal (Abdomen): Inspection/Auscultation: abdomen normal to inspection Musculoskeletal: Head/Neck/Chest: normocephalic Neurologic: moves all extremities and awake Psychiatric: Orientation: alert and oriented x 3 Results & Data Vital Signs (Past 12 Hours) Vital Signs Temp Pulse Pulse Resp BP BP Pulse Ox 09/10/24 07:58 36.7 C 85 18 146/80 H 94 09/10/24 07:06 86 09/10/24 03:50 36.7 C 79 18 132/80 96 09/09/24 23:42 36.8 C 80 18 127/75 96 09/09/24 22:50 86 09/09/24 21:54 87 09/09/24 20:39 36.5 C 86 18 143/78 H 95 O2 Del Method O2 Flow Rate 09/10/24 07:58 Room Air 09/10/24 07:06 09/10/24 03:50 Nasal Cannula 2 09/09/24 23:42 Nasal Cannula 2 09/09/24 22:50 09/09/24 21:54 09/09/24 20:39 Room Air PG Care Time/CCT Total # of Minutes Spent Total Time Spent with Patient: Total time spent is greater than 50% in coordination of care (as documented) at patient's floor/unit and/or counseling patient: Coding Level of Care Code 84984 SUB INP/OBS CARE 12/25MIN Diagnoses Calculus of proximal left ureter N20.1 Hydronephrosis N13.30
[2024-09-10] MEDS: MESALAMINE ER 0.375 GM PO SCH (10:20)
[2024-09-10] MEDS: ESCITALOPRAM OXALATE 20 MG TAB PO SCH (10:21)
--- NOTE | 2024-09-10 11:23 | XRay Report ---
KUB CLINICAL HISTORY: Left ureteral stone. COMPARISON STUDY: CT of the abdomen and pelvis September 09, 2024. FINDINGS: An 8 mm proximal left ureteral calculus has not significantly changed in position since CT of September 09, 2024. Left pelvic calcifications represent phleboliths. Bowel gas pattern is normal. T here are cholecystectomy clips. Incidental note is made of contrast within the bladder from recent CT . IMPRESSION: No change in position of an 8 mm proximal left ureteral calculus. ACT 112: Negative or not required by law. Electronically signed by: Chris Keller M.D. 09/10/2024 11:21 AM
[2024-09-10 11:46] VITALS: RESP 16
[2024-09-10 15:48] VITALS: PULSE 90; TEMP 98.2; O2SAT 92
[2024-09-10 16:05] VITALS: BP 149/83
--- NOTE | 2024-09-10 18:16 | Discharge Summary ---
Discharge Summary Date of Service September 10, 2024 Principal Dx & Hospital Course #1 = Principal Diagnosis (1) Calculus of proximal left ureter: Presented with acute onset of LLQ pain that began on the evening of 09/08 - Mild leukocytosis at 14.87 with a neutrophil predominance, afebrile on admission - CT A/P on arrival revealed an 8 mm proximal left ureteral calculus > One prior incidence of kidney stones - Given leukocytosis and imaging showing perinephric stranding, will cover with Cefepime 2000 mg IV x 1 > Discussed patient's PCN allergy at bedside; no history of anaphylaxis or throat closure with PCN, but she does report "tongue swelling" > Discussed case with pharmacy. Patient has tolerated Cefepime x 6 doses in January 2022 - Urology consult appreciated > Patient with prior episode of nephrolithiasis with poor tolerance of stents > Her obstructing stone is large and of she may have trouble passing it spontaneously and would require intervention, however patient wanted to hold off on 09/09 - Flank pain resolved, nausea/vomiting resolved, well-tolerated regular diet 09/10/24 > Patient elected outpatient stone management. Follow-up with urology scheduled for 09/14/2024 - Discharged on tamsulosin HS, Phenergan as needed for nausea, oxycodone 5 mg as needed for severe/breakthrough pain (2) Hydronephrosis: Treatment (as above) (3) Ulcerative colitis: Discussed with pharmacy, we do not have extended release mesalamine on formulary Patient's reports he can bring in from home Continue mesalamine; okay to take prescription on arrival (4) Severe obstructive sleep apnea: CPAP HS (5) Anxiety: Continue escitalopram Plan CODE STATUS: Full code Notes For Next Care Provider Patient presented with left-sided flank pain, nausea and vomiting. CT A/P revealed 8 mm left ureteral stone with hydronephrosis. Evaluated by urology. Patient elected for outpatient stone management. Pain/nausea/vomiting resolved next day, patient was discharged home and will follow-up with urology outpatient. Medication Changes From Visit Flomax at bedtime Zofran as needed for nausea Oxycodone 5 mg as needed for severe/breakthrough pain Admission HPI Per Admitting Provider Susanna is a pleasant 54-year-old female with PMH of HTN, UC, nephrolithiasis, ovarian cyst, severe STEVE, anxiety, and vitamin D/B12 deficiency. She presented on 09/09 for left lower quadrant abdominal pain that began yesterday around 1600. Pain came on suddenly, and she characterizes it as a sharp, stabbing pain that was constant yesterday, but is coming in waves today. Pain is located in the left lower quadrant of her abdomen with radiation around the flank to the lower back. She rates it 2/10 after receiving pain medicine in the ED; 9/10 at worst. She took extra strength Tylenol last night, but this did not help. Moving in different positions did not alleviate the pain. She also reports that she began vomiting last night, which she believes is due to the pain. She does have a history of an 8 mm kidney stone back in October 2023 that required a stent. Patient did not take her regular morning medications today; no recent change in medications. She is not on supplemental oxygen at baseline, but does note that her SpO2 was dropping to the 80-89% range in the ED and she was given additional oxygen. He uses a CPAP at night. Patient has not had anything to eat since yesterday around 4 PM. Patient denies smoking or tobacco use. She does endorse occasional alcohol use; 3-5 drinks per week; 1 alcoholic drink yesterday. Patient does report that she has a penicillin allergy, but is unsure what happens when she takes them as her reaction was a very long time ago; she believes her tongue swelled up; she denies throat closure or anaphylaxis, and does not believe she had hives. She reports she is amenable to trying Ceftriaxone and/or Cefepime after discussion of risks/benefits. Patient is mi ldly hypertensive at 147/91 at time of admission; vitals otherwise stable. ED course: Dilaudid 0.5mg IV Toradol 10mg IV Morphine 4mg IV Zofran 4mg IV x 3 NSS 500mL IV ROS: Patient endorses dizziness/lightheadedness, LLQ abdominal pain, left flank/lower back pain, nausea, vomiting, increased urinary frequency, Patient denies fever, chills, nigh-sweats, LUCIA, chest pain, SOB, pleuritic CP, chest palpitations, cough, diarrhea, dysuria, blood in urine/stool, saddle anesthesia, or N/T in the legs. Admission Exam Per Admitting Provider General: no acute distress; pleasant affect; at bedside; non-toxic appearing; well-nourished; cooperative HEENT: normocephalic, atraumatic; no scleral icterus; PERRLA; vision and hearing grossly intact Neck: supple; no lymphadenopathy; trachea midline Skin: warm, dry without signs of tenting; no cyanosis; no rashes, bruising, lesions, or erythema noted CV: chest wall NTP; RRR; S1/S2 normal; no murmurs/rubs/gallops; pulses intact and symmetric at radial, DP, and PT Lungs: no acute respiratory distress; symmetrical chest wall expansion; clear breath sounds across all lung scales w/o adventitious sounds; no wheezing ABD: Soft, NTP in all 4 quadrants; BS present; no rebound/guarding; no distention Back: Mild left-sided CVA tenderness; no signs of bruising on the abdomen/f lank/back MSK: no tics or fasciculations; no edema noted in the LEs b/l, nonerythematous Neuro: A&Ox3; normal mood and affect; fluent speech; no focal deficits; sensation grossly intact in the LEs b/l Discharge Exam General: No acute distress, nondiaphoretic, well-developed, well-nourished. Skin: The skin was without rashes, erythema, edema, or bruising. Cardiac: Regular rate and rhythm without murmurs gallops or rubs. Pulm: Clear to auscultation bilaterally without wheezes, rales or rhonchi. No respiratory distress. 92% on room air. Abdominal: Soft, nontender, nondistended. Bowel sounds present. No CVA tenderness. No signs of bruising on the abdomen/flanks. Neuro: A&O x3. No focal neurological deficits. Discharge Plan Discharge Items Patient Disposition: Home - Self-Care Reason For Visit: KIDNEY STONE Discharge Diagnosis: 8 mm proximal left ureteral calculus with hydronephrosis Activity: Resume your previous activity Non-emergency contact: Urologist Call non-emergency contact if: you have any medication questions and your symptoms worsen Follow-up/Referrals: Alec Redding MD [Physician] - (Follow-up in 1 week) Ivana Childers DO [Primary Care Provider] - 09/14/24 2:15 pm Diet: Regular Addtl Attending Provider Instructions: Mrs. Urban, You were admitted to the hospital due to an 8 mm stone in your left ureter with hydronephrosis (swelling of your kidney). This is what caused your acute onset of left lower quadrant pain. You were evaluated by urology who discussed various options for stone management. Since you have elected outpatient stone management and your pain is now controlled, you are being discharged from the hospital. Prescriptions have been sent to your [facility] pharmacy [facility] [place]. Upon discharge from the hospital: * Take Flomax 1 capsule at bedtime. * Take Phenergan (antinausea medicine) 1 tablet every 6 hours as needed for nausea. * Take Tylenol as needed for pain. Use this as your first-line pain medicine. This is [id number] (OTC) so a prescription is not required. * Take oxycodone 5 mg every 6 hours as needed for severe/breakthrough pain. * Follow-up with urology outpatient as scheduled. Please return to the hospital if you experience any of the following: Fever of 100.5 F or higher, pain that is not controlled by medicine, repeated vomiting or unable to keep down fluids, passing solid red or brown urine or urine with a lot of blood clots, foul-smelling or cloudy urine, unable to pee for 8 hours with increasing bladder pressure, confusion, lightheadedness, dizziness, shortness of breath, difficulty breathing, chest pain, or passing out. It was a pleasure taking care of you while you were in the hospital, Aura Magana PA-C Pending Studies at Discharge: No Stand-Alone Forms: My [facility], Smoking Cessation Medications and DC Order Prescriptions: New tamsulosin 0.4 mg Capsule 0.4 mg PO HS Qty: 14 0RF promethazine 25 mg tablet 25 mg PO Q6H PRN (Reason: sedation) Qty: 14 0RF oxycodone 5 mg tablet 5 mg PO Q6H PRN (Reason: pain) Qty: 14 0RF Continued escitalopram oxalate 20 mg tablet 20 mg PO QAM Qty: 90 3RF Rx Instructions: TAKE 1 TABLET BY MOUTH EVERY DAY [facility]#[id number] Apriso 0.375 gram capsule,extended release 24hr 1.5 gm PO QAM Rx Instructions: 4 tablet dose mecobalamin (vitamin B12) 1,000 mcg tablet,chewable 1,000 mcg PO DAILY cholecalciferol (vitamin D3) 50 mcg (2,000 unit) capsule 50 mcg PO DAILY Centrum Women 18-400 mg-mcg Tablet 1 tab PO QAM Discharge Orders: Discharge Order (Routine); Ordered 09/10/24 Ordered By: Aura Magana Admission Data Admit Date/Time: 09/09/24 14:18 Attending Provider: Delano Adam Admit Provider: David Brizuela Primary Care Provider: Ivana Childers Other Providers: Alec Redding; David Brizuela Other Interventions: Discharge Summary Assessment (RN) Last Done: 09/10/24 16:04 Hospital Stay Data Consultations 09/09/24 13:42 Consult Urology Stat ED Decision to Admit Stat Diagnostic Imagining Performed Abdomen/Pelvis CT 09/09/24 07:48 CT OF THE ABDOMEN AND PELVIS WITH CONTRAST CLINICAL HISTORY: Left lower quadrant abdominal pain. COMPARISON STUDY: CT of the abdomen and pelvis October 17, 2023. Renal ultrasound January 06, 2024. TECHNIQUE: Following IV administration of 93 mL of Optiray, axial images of the abdomen and pelvis were obtained from the lung bases to the proximal femurs. Images were reviewed in the axial, sagittal, and coronal planes. IV contrast was administered without complication. Automated exposure control was utilized for the study. A dose lowering technique was utilized adhering to the principles of ALARA. CT DOSE: 1349.56 mGy.cm FINDINGS: An 8 mm proximal left ureteral calculus results in moderate left hydronephrosis with delayed nephrogram and perinephric and periureteral stranding. There is no right hydronephrosis. No additional urinary calculi are present. Liver, spleen, adrenal glands and pancreas are unremarkable. There is no biliary ductal dilatation status post cholecystectomy. No evidence for a bowel obstruction. The appendix is normal. There is no lymphadenopathy. No fluid collections are present. Caliber and wall thickness of small and large bowel are normal. Colonic diverticulosis is present. There is no evidence for acute divert iculitis. IMPRESSION: 8 mm proximal left ureteral calculus which results in moderate hydronephrosis with delayed nephrogram and perinephric and periureteral stranding. ACT 112: Negative or not required by law. Electronically signed by: Chris Keller M.D. 09/09/2024 9:20 AM KUB X-Ray 09/10/24 09:46 KUB CLINICAL HISTORY: Left ureteral stone. COMPARISON STUDY: CT of the abdomen and pelvis September 09, 2024. FINDINGS: An 8 mm proximal left ureteral calculus has not significantly changed in position since CT of September 09, 2024. Left pelvic calcifications represent phleboliths. Bowel gas pattern is normal. There are cholecystectomy clips. Incidental note is made of contrast within the bladder from recent CT. IMPRESSION: No change in position of an 8 mm proximal left ureteral calculus. ACT 112: Negative or not required by law. Electronically signed by: Chris Keller M.D. 09/10/2024 11:21 AM Pending Results Patient Have Any Pending Studies at Discharge: No Discharge Instructions Given to Patient (Per Discharging Provider) Mrs. Urban, Manuel were admitted to the hospital due to an 8 mm stone in your left ureter with hydronephrosis (swelling of your kidney). This is what caused your acute onset of left lower quadrant pain. You were evaluated by urology who discussed various options for stone management. Since you have elected outpatient stone management and your pain is now controlled, you are being discharged from the hospital. Prescriptions have been sent to your [facility] pharmacy on [address]. Upon discharge from the hospital: * Take Flomax 1 capsule at bedtime. * Take Phenergan (antinausea medicine) 1 tablet every 6 hours as needed for nausea. * Take Tylenol as needed for pain. Use this as your first-line pain medicine. This is [id number] (OTC) so a prescription is not required. * Take oxycodone 5 mg every 6 hours as needed for severe/breakthrough pain. * Follow-up with urology outpatient as scheduled. Please return to the hospital if you experience any of the following: Fever of 100.5 F or higher, pain that is not controlled by medicine, repeated vomiting or unable to keep down fluids, passing solid red or brown urine or urine with a lot of blood clots, foul-smelling or cloudy urine, unable to pee for 8 hours with increasing bladder pressure, confusion, lightheadedness, dizziness, shortness of breath, difficulty breathing, chest pain, or passing out. It was a pleasure taking care of you while you were in the hospital, Aura Gross, PA-C Total Time Total Time Spent Total Time Spent (In Minutes): Greater than 30 minutes spent completing this discharge process including direct patient care, medication reconciliation, documentation, review of labs and images, and coordination of care. Coding Level of Care Code 20988 INP/OBS DISCH >30 MIN Diagnoses Calculus of proximal left ureter N20.1 Hydronephrosis N13.30 Ulcerative colitis K51.90 Severe obstructive sleep apnea G47.33 Anxiety F41.9
== END 2024-09-10 16:18 | disposition home or self-care (01) | DRG 694 ==
LOC: ED 07:29 → 2N 14:18 → SUATTDRO 14:18 → 2N 19:45
DX: Z91.040 Latex allergy status; D72.829 Elevated white blood cell count, unspecified; Z88.2 Allergy status to sulfonamides; Z88.0 Allergy status to penicillin; Z88.8 Allergy status to other drugs, medicaments and biological substances; Z86.16 Personal history of COVID-19; I10 Essential (primary) hypertension; K51.90 Ulcerative colitis, unspecified, without complications; N13.2 Hydronephrosis with renal and ureteral calculous obstruction; G47.33 Obstructive sleep apnea (adult) (pediatric); Z79.899 Other long term (current) drug therapy; F41.9 Anxiety disorder, unspecified